=== PATIENT | female | born 1930 | race Caucasian/White ===

== ENCOUNTER 2016-05-18 09:49 | Inpatient (IN) | payer MEDICARE, OTHER ==
[~2016-05-18] VITALS: Ht 177.8 cm; Wt 81.6 kg
[~2016-05-18 09:49] MED LIST: BAYER CHEWABLE81 MG PO; CIPRO250 MG PO; CYCLOBENZAPRINE10 MG PO; METOPROLOL TART50 MG PO; PROZAC20 MG PO; TRIAMTERENE-HCT1 TA1 PO; XANAX0.25 MG PO
[2016-05-18 10:25] LABS: APPEARANCE CLEAR (CLEAR); BILIRUBIN NEGATIVE (NEGATIVE); COLOR STRAW (YELLOW); GLUCOSE NEGATIVE (NEGATIVE); KETONE NEGATIVE (NEGATIVE); LEUKOCYTE ESTERASE NEGATIVE (NEGATIVE); NITRITE NEGATIVE (NEGATIVE); PROTEIN NEGATIVE (NEGATIVE); SPECIFIC GRAVITY 1.005 (1.005-1.020); UROBILINOGEN NORMAL (NORMAL)
[2016-05-18 11:11] LABS: BASOPHILS 0.3 % (0.0-2.0); EOSINOPHILS 0.6 % (0-7); HEMATOCRIT 38.2 % (36.0-48.0); HEMOGLOBIN 12.2 g/dL (12-16); IMMATURE GRANULOCYTES 0.4 % (0-5); LYMPHOCYTES 17.7 % (15-50); MCH 26.4 pg (26.0-34.0); MCHC 31.9 g/dL (31.0-37.0); MCV 82.7 fL (80.0-100.0); MEAN PLATELET VOLUME 9.6 fL (7.4-10.4); MONOCYTES 6.9 % (2-11); NEUTROPHILS 74.1 % (40-80); PLATELET COUNT 288 10x3/uL (130-400); RBC 4.62 10x6/uL (4.00-5.40); RDW 15.6 % (11.5-14.5); WBC 7.8 10x3/uL (4.8-10.8)
[2016-05-18 11:23] LABS: INR 1.06 (0.85-1.17); PROTIME 13.7 SECONDS (11.6-15.0)
[2016-05-18 11:26] LABS: ALKALINE PHOSPHATASE 89 U/L (46-116); ALT (SGPT) 24 U/L (10-68); BILIRUBIN - TOTAL 0.63 mg/dL (0.2-1.3); CALC OSMOLALITY 258 mosm/kg (275-300); CALCIUM 8.7 mg/dL (8.5-10.1); CARBON DIOXIDE 26.5 mmol/L (21.0-32.0); CHLORIDE - SERUM 92 mmol/L (98-107); CREATININE - SERUM 1.3 mg/dL (0.6-1.3); GLUCOSE 103 mg/dL (74-106); POTASSIUM - SERUM 3.5 mmol/L (3.5-5.1); PROTEIN - SERUM 7.2 g/dL (6.4-8.2); SODIUM 128 mmol/L (136-145); UREA NITROGEN 19 mg/dL (7-18); eGFR NON AFRICAN AMERICAN 41 mL/min (90-120)
[2016-05-18 11:36] LABS: CREATINE KINASE 41 UL (21-215); MAGNESIUM - SERUM 1.9 mg/dL (1.8-2.4); PRO BNP 640 pg/mL (0-450)
[2016-05-18 11:37] LABS: TROPONIN-I < 0.017 ng/mL (0.000-0.060)
--- NOTE | 2016-05-18 14:20 | NUR ---
PATIENT RECEIVED TO FLOOR FROM ER VIA STRETCHER. PATIENT TRANSFERRED TO BED AND POSITIONED FOR COMFORT. RATES PAIN 6/10. RIGHT ARM NOTED TO HAVE SCABBED OVER SORE. PATIENT ORIENTED TO ROOM. SIDE RAILS UP X2. BED IN LOW POSITION. CALL LIGHT IN REACH.
[2016-05-18 15:24] VITALS: BP 105/62; BMI 25.8
[2016-05-18 15:57] VITALS: BP 105/62
--- NOTE | 2016-05-18 17:30 | NUR ---
PATIENT SITTING UP ON SIDE OF BED ALERT AND EATING DINNER. TOLERATING WELL. DENIES NEEDS. SIDE RAILS UP X2. BED IN LOW POSITION. CALL LIGHT IN REACH.
--- NOTE | 2016-05-18 18:32 | NUR ---
IVF INITIATED PER ORDERS. IV TO LEFT WRIST PATENT. NO REDNESS OR INFLAMMATION NOTED AT SITE. NORCO ADMINISTERED PER PRN ORDER FOR PAIN 06/29. DENIES NEEDS. SIDE RAILS UP X2. BED IN LOW POSITION. CALL LIGHT IN REACH.
[2016-05-18 19:00] VITALS: BP 113/65
[2016-05-19 01:00] VITALS: BP 121/70
[2016-05-19 04:00] VITALS: BP 112/56
--- NOTE | 2016-05-19 05:46 | NUR ---
PATIENT RESTING WITH EYES CLOSED. NO VISIBLE SIGNS OF DISTRESS. BED IN LOWEST POSITION AND CALL LIGHT WITHIN REACH.
[2016-05-19 06:30] LABS: ANION GAP 14.4 mmol/L (8-16); CALCIUM 8.6 mg/dL (8.5-10.1); CARBON DIOXIDE 25.4 mmol/L (21.0-32.0); CREATININE - SERUM 1.2 mg/dL (0.6-1.3); POTASSIUM - SERUM 3.8 mmol/L (3.5-5.1)
--- NOTE | 2016-05-19 07:30 | NUR ---
PATIENT RECEIVED ALERT IN BED. RESPIRATIONS EVEN AND UNLABORED. DRY PAD PLACED UNDER PATIENT. REQUESTING PAIN MEDICATION. SIDE RAILS UPX 2. BED IN LOW POSITION. CALL LIGHT IN REACH.
--- NOTE | 2016-05-19 07:35 | NUR ---
NORCO ADMINISTERED PER PRN ORDER FOR PAIN 06/29. NO FURTHER NEEDS VOICED. SIDE RAILS UP X2. BED IN LOW POSITION. CALL LIGHT IN REACH.
--- NOTE | 2016-05-19 08:06 | HP ---
PATIENT: KARIN MULLINS MEDICAL RECORD: [id number] ACCOUNT: [id number] LOCATION:[id number] : 29 ADMISSION DATE: 05/18/16 HISTORY AND PHYSICAL EXAMINATION REASON FOR ADMISSION: Pain in the right hip with ambulating. HISTORY OF PRESENT ILLNESS: The patient is an elderly female who had fallen after being tripped by her dog on 05/04/2016. She was seen in the office at that time and complained of some right elbow and hip pain. X-rays were unremarkable for fracture at that time and she was unable to weightbear. ____, this side of her pain did not improve, she could have an occult fracture and need to return to clinic. Apparently over the weekend, she had more pain and she was directed to the ER where a CT scan did show a right-sided superior and inferior nondisplaced pelvic fracture. She is now admitted for pain control and graduated physical therapy. Her elbow has improved initially not bothering her currently. PAST MEDICAL HISTORY: Osteoarthritis, history of cataracts, depression, anxiety, hyperlipidemia, glucose intolerance, and Zenker's diverticulum with dysphagia. PAST SURGICAL HISTORY: She has had a total knee replacement on the right in 2008, hysterectomy. SOCIAL HISTORY: She is . Her son cares for her locally. She is a nonsmoker and nondrinker lifelong. ALLERGIES: PENICILLIN. FAMILY HISTORY: Both parents of cardiovascular disease. HOME MEDICATIONS: Flexeril 10 mg p.o. 6 hours p.r.n. low back pain, metoprolol 25 mg p.o. b.i.d., Xanax 0.25 mg daily p.r.n. anxiety, aspirin 81 mg p.o. daily, Prozac 20 mg p.o. daily, triamterene 1 p.o. q.a.m. REVIEW OF SYSTEMS: CONSTITUTIONAL: No fever, fatigue, or weight change. HEENT: She has some trouble with her vision. No recent trouble hearing. RESPIRATORY: No severe cough. CARDIAC: No chest pain, claudication or edema. GASTROINTESTINAL: No nausea, vomiting, change in stools or blood per rectum. GENITOURINARY: Has mild intermittent incontinence, has had UTIs in the past. No recent dysuria or hematuria. MUSCULOSKELETAL: Was complaining of minimal shoulder pain on the right, but has significant pain in the right hip and groin with standing and could not weightbear at this time. NEUROLOGIC: No history of stroke, TIA, vascular headaches or paresthesias. PSYCHIATRIC: Admits to depressed mood, improved on Prozac. No suicidal thoughts. PHYSICAL EXAMINATION: VITAL SIGNS: Temperature 97.9 Fahrenheit orally, height is 5 feet 2 inches. Weight 180 pounds, pulse is 71, respirations 16, blood pressure 105/52, room air O2 sat 90%. HISTORY AND PHYSICAL [id number] KARIN MULLINS HEENT: Normocephalic. Eyes are clear with cataracts, both eyes. Oropharynx unremarkable. NECK: No bruits or masses. CHEST: Clear. HEART: Regular rate without MGR. PMI appropriate. BREASTS: Appears symmetrical. ABDOMEN: Obese, soft, nontender, no organomegaly. EXTREMITIES: She has some bruising over her right upper lateral humerus, but good range motion of the shoulder and elbow. Right hip shows some pain on abduction or any weightbearing causes pain in the right groin. No significant edema is appreciated. NEUROLOGICAL: Grossly intact motor and sensory. Memory is intact times 3. LABORATORY DATA: CT of the pelvis shows nondisplaced superior and inferior rami fracture on the right with small intramuscular hematoma. Chest x-ray shows no acute cardiopulmonary abnormality. Lab work shows a white count 7800, H&H of 12.2 and 38.2 respectively. Sodium is 128, potassium is 3.5, BUN and creatinine 19 and 1.3, glucose is 103. Lactic acid 1.6. Magnesium 1.9. ProBNP is 640. Urinalysis is clear. INR is 1.06. ASSESSMENT: 1. Subacute right superior and inferior pubic rami fracture with intractable pain. 2. Glucose intolerance. 3. Hypertension. 4. Osteoarthritis. 5. Depression. 6. Chronic anxiety. PLAN: The patient admitted for pain control and graduated physical therapy as tolerated and possible rehabilitation admission. TRANSINT:[id number] Voice Confirmation ID: [id number] DOCUMENT ID: [id number] DE JJ MD at 0806 CC: [id number] DICTATION DATE: 05/18/161809 RN TELE: 05/18/165 [place] [address]
[2016-05-19 08:13] VITALS: BP 115/69
--- NOTE | 2016-05-19 08:25 | NUR ---
PATIENT ALERT IN BED. RESPIRATIONS EVEN AND UNLABORED. STATES PAIN IS BETTER. SCHEDULED MEDICATION ADMINISTERED. SIDE RAILS UP X2. BED IN LOW POSITION. CALL LIGHT IN REACH.
--- NOTE | 2016-05-19 11:30 | NUR ---
PATIENT IN MID MCGOVERN POSITION RESTING WITH EYES CLOSED. RESPIRATIONS EVEN AND UNLABORED. SIDE RAILS UP X2. BED IN LOW POSITION. CALL LIGHT IN REACH.
[2016-05-19 11:32] VITALS: BP 104/58
--- NOTE | 2016-05-19 13:48 | NUR ---
C/O PAIN 08/29. NORCO ADMINISTERED PER PRN ORDER. NO FURTHER NEEDS VOICED. SIDE RAILS UP X2. BED IN LOW POSITION. CALL LIGHT IN REACH.
[2016-05-19 14:23] VITALS: Ht 177.8 cm; Wt 81.6 kg
[2016-05-19 14:58] VITALS: BP 94/55
--- NOTE | 2016-05-19 15:56 | NUR ---
Patient Name: KARIN MULLINS Admission Status: ER Accout number: [id number] Admission Date: 05-18-2016 : 1929 Admission Diagnosis: Attending: MCKENZIE Current LOS: 1 Anticipated DC Date: Planned Disposition: Primary Insurance: MEDICARE A & B Discharge Planning Comments: CM SPOKE WITH PATIENT REGARDING D/C NEEDS AND PLANS. PATIENT STATED SHE LIVES ALONE AND HER SON LIVES ACROSS THE STRE[address] FROM HER. THERE ARE NO STEPS OR STAIRS AT HER HOME. PATIENT STATED HER SON WILL DRIVE HER HOME AT DISCHARGE. PATIENT IS INDEPENDENT WITH HER CARE AND HAS A WALKER, CANE, WHEELCHAIR, BS COMMODE, AND SHOWER CHAIR AT HOME. PATIENTS PCP IS DR. JJ AND PHARMACY IS [facility] [place]. PATIENT HAS A REHAB CONSULT. CM WILL CONTINUE TO FOLLOW PATIENT WITH D/C NEEDS AND PLANS. PCP DR. [facility] [place]- [phone] LOAN BRADLEY) [phone] Fashion Consultant Sales: Mary Knox Is the patient Alert and Oriented? Yes 0 * How many steps to enter\exit or inside your home? 0 0 * PCP DR. JJ 0 * Pharmacy [facility] [place] 0 * Preadmission Environment Home Alone 0 * ADLs Independent 0 * Equipment Bedside Commode Cane Shower Chair Walker Wheelchair 0 * List name and contact numbers for known caregivers / representatives who currently or will assist patient after discharge: LOAN BRADLEY) [phone] * Community resources currently utilized None 0 * Additional services required to return to the preadmission environment? Yes 0 * Can the patient safely return to the preadmission environment? Yes 0 * Has this patient been hospitalized within the prior 30 days at any hospital? No 0 Grand Total: 0
--- NOTE | 2016-05-19 16:30 | NUR ---
PATIENT IN MID MCGOVERN POSITION RESTING WITH EYES CLOSED. RESPIRATIONS EVEN AND UNLABORED. SIDE RAILS UP X2. BED IN LOW POSITION. CALL LIGHT IN REACH.
--- NOTE | 2016-05-19 17:48 | NUR ---
ALERT IN HIGH MCGOVERN POSITION. RESPIRATIONS EVEN AND UNLABORED. TOLERATED DINNER WITHOUT DIFFICULTY. SIDE RAILS UP X2. BED IN LOW POSITION. CALL LIGHT IN REACH.
[2016-05-19 19:00] VITALS: BP 107/61
--- NOTE | 2016-05-19 19:30 | NUR ---
ASSESSMENT COMPLETED, NO ACUTE DISTRESS NOTED, FALL PRECAUTIONS IN PLACE, CL IN REACH, WILL MONITOR
--- NOTE | 2016-05-19 21:10 | NUR ---
NORCO GIVEN PER REQUEST FOR PELVIC PAIN, ASSISTED TO BSC AND BACK TO BED, JIMBO WELL, FALL PRECAUTIONS IN PLACE, CL IN REACH
--- NOTE | 2016-05-19 21:55 | NUR ---
PRN MORPHINE GIVEN FOR PAIN 11/29, JIMBO WELL, WILL MONITOR
--- NOTE | 2016-05-19 23:36 | NUR ---
RESTING WITH EYES CLOSED, RESP WITH EASE, NO DISTRESS NOTED, SR'S UP, CL IN REACH
[2016-05-20 04:00] VITALS: BP 112/67
--- NOTE | 2016-05-20 05:00 | NUR ---
NORCO GIVEN FOR C/O PELVIC PAIN, ASSISTED TO BSC AND BACK TO BED, JIMBO WELL, DENIES FURTHER NEEDS, CL IN REACH
--- NOTE | 2016-05-20 07:10 | NUR ---
PATIENT RECEIVED ALERT IN LOW MCGOVERN POSITION. RESPIRATIONS EVEN AND UNLABORED. RATES PAIN 4/10. SIDE RAILS UP X2. BED IN LOW POSITION. CALL LIGHT IN REACH.
[2016-05-20 08:30] VITALS: BP 141/75
--- NOTE | 2016-05-20 09:23 | NUR ---
PATIENT ALERT IN MID MCGOVERN POSITION. RESPIRATIONS EVEN AND UNLABORED. SCHEDULED MEDICATION ADMINISTERED. IV SALINE LOCKED PER ORDER. DENIES NEEDS. SIDE RAILS UP X2. BED IN LOW POSITION. CALL LIGHT IN REACH.
--- NOTE | 2016-05-20 10:27 | NUR ---
Rehab Prescreening Consult recieved and the chart has been reviewed. She meets criteria for IRF and will be accepted today if the physician and patient agree. The CM Mary Maldonado RN has been made aware. Mili Ramos RN Clinical Liaison, Rehab
--- NOTE | 2016-05-20 12:00 | NUR ---
ALERT IN BED VISITING WITH FAMILY. RESPIRATIONS EVEN AND UNLABORED. SIDE RAILS UP X2. BED IN LOW POSITION. CALL LIGHT IN REACH.
[2016-05-20 12:18] VITALS: BP 93/60
--- NOTE | 2016-05-20 14:53 | NUR ---
C/O PAIN 06/29. 1 TAB NORCO ADMINISTERED PER PRN ORDER. DENIES FURTHER NEEDS. SIDE RAILS UP X2. BED IN LOW POSITION. CALL LIGHT IN REACH.
[2016-05-20 16:43] VITALS: BP 118/56
--- NOTE | 2016-05-20 18:06 | NUR ---
C/O PAIN 08/29. MORPHINE PER PRN ORDER. WELL TOLERATED. DENIES NEEDS. SIDE RAILS UP X2. BED IN LOW POSITION. CALL LIGHT IN REACH.
[2016-05-20 20:00] VITALS: BP 113/65
--- NOTE | 2016-05-20 21:00 | NUR ---
ALERT,ORIENTED. NO COMPLAINTS AT PRESENT. SL TO LEFT FOREARM WIHTOUT REDNESS OR EDEMA NOTED.CL IN REACH.
[2016-05-21] VITALS: BP 145/82
--- NOTE | 2016-05-21 01:53 | NUR ---
UP TO BSC WIHT ASSIST. RETURNED TO BED WIHTOUT COMPLAINTS VOICED. CL IN REACH.
--- NOTE | 2016-05-21 03:17 | NUR ---
RN NOTE: PT LYING IN SUPINE POSITION WITH EYES CLOSED AND UNLABORED BREATHING. LEFT WRIST SALINE LOCKED. WILL CONTINUE TO MONITOR [place]LEY FOR NEEDS. CALL LIGHT WITHIN REACH.
[2016-05-21 04:00] VITALS: BP 121/74
--- NOTE | 2016-05-21 05:53 | NUR ---
AWAKE WITH NO COMPLAINTS. CL IN REACH. NO CHANGE IN ASSESSMENT.
[2016-05-21 08:30] VITALS: BP 126/72
--- NOTE | 2016-05-21 11:19 | NUR ---
CM REASSESSMENT NOTE: PATIENT WILL DISCHARGE TODAY TO IP REHAB.
[2016-05-21 12:28] VITALS: BP 130/70
--- NOTE | 2016-05-21 12:47 | NUR ---
NUTRITION MONITORING & EVAL PT VISIT. TOLERATING REG DIET WITH ~50% INTAKE MEALS. WILL CONTINUE TO PROVIDE CURRENT DIET, HONOR FOOD PREFERENCES. RD FOLLOWING
[2016-05-21] MEDS ORDERED: LOVENOX40 MG/0.4 SC (12:54)
[2016-05-21] MEDS ORDERED: IPRAT-ALBUT 0.5-3 ML INH (12:54)
[2016-05-21] MEDS ORDERED: HYDROCODONE-APA1 TAB PO (12:55)
[2016-05-21] MEDS ORDERED: ANUSOL-HC 2.5%30 GM TOPICAL (12:57)
[2016-05-21 16:10] VITALS: BP 108/54
--- NOTE | 2016-05-21 16:37 | NUR ---
DISCHARGE INSTRUCTIONS COMPLETED WITH PATIENT. D/C IV WITH CATH INTACT.
--- NOTE | 2016-05-21 16:50 | NUR ---
TOOK PATIENT TO REHAB
--- NOTE | 2016-06-20 08:04 | DS ---
PATIENT:KARIN MULLINS :28 MEDICAL RECORD: [id number] DISCHARGE SUMMARY ADMISSION DATE: 05/18/16 DISCHARGE DATE: 05/21/16 DISCHARGE DIAGNOSES: 1. Right superior and inferior pelvic fracture. 2. Hypertension. HOSPITAL COURSE: This is an 85-year-old female who had fallen about a week and a half before admission at home, fell ____ right hip. Initial x-rays were unremarkable. Her pain ____ persistently worse and she was brought into the ED where CT did show superior and inferior ramus fracture on the right medial to the acetabulum. The patient was admitted for pain control and progressive PT. She is improved somewhat and was accepted to inpatient rehab for gradual increase in her walking and working on ADLs and OT. Discharged today in improving condition to [facility] inpatient rehabilitation. DISCHARGE MEDICATIONS: Flexeril 1 p.o. q.6 hours p.r.n. muscle spasm, Lovenox 40 mg subQ daily, Lopressor 25 mg p.o. b.i.d., Xanax 0.25 every day p.r.n. anxiety, aspirin 81 mg p.o. daily, Prozac 20 mg daily, Dyazide 1 q.a.m., hydrocodone 10/325 one q.6 hours p.r.n. pain, Anusol-HC cream applied to hemorrhoids p.r.n. ACTIVITY: Progress as tolerated with physical therapy. DIET: No added salt. Return to clinic to see me 2 weeks after hospital discharge. TRANSINT:[id number] Voice Confirmation ID: [id number] DOCUMENT ID: [id number] DE JJ MD at 0804 CC: [id number] DICTATION DATE: 05/21/16 1258 SUPERVISOR LEAD BURNING: 05/22/16 0920 DIS IN 05/21/16 [address] [place] [address]
== END 2016-05-21 16:50 | DRG 536 ==
LOC: D.ER 09:49 → D.MS 13:35
PROVIDERS: Emergency Medicine; Nurse Practitioner Family; ADMIT Family Medicine
DX: S32.810A Multiple fractures of pelvis with stable disruption of pelvic ring, initial encounter for closed fracture (principal); E87.1 Hypo-osmolality and hyponatremia; W01.0XXA Fall on same level from slipping, tripping and stumbling without subsequent striking against object, initial encounter; E78.5 Hyperlipidemia, unspecified; M19.90 Unspecified osteoarthritis, unspecified site; F41.9 Anxiety disorder, unspecified; F32.9 Major depressive disorder, single episode, unspecified; E74.39 Other disorders of intestinal carbohydrate absorption; I10 Essential (primary) hypertension; R26.9 Unspecified abnormalities of gait and mobility

== ENCOUNTER 2016-05-21 13:14 | Inpatient (IN) | payer MEDICARE, OTHER ==
[~2016-05-21] VITALS: Ht 177.8 cm; Wt 83.5 kg
[~2016-05-21 13:14] MED LIST changes: +ANUSOL-HC 2.5%30 GM TOPICAL; +HYDROCODONE-APA1 TAB PO; +IPRAT-ALBUT 0.5-3 ML INH; +LOVENOX40 MG/0.4 SC
--- NOTE | 2016-05-21 16:45 | NUR ---
PT RECEIVED TO UNIT VIA WHEELCHAIR ALERT AND CALM.
[2016-05-21 17:25] VITALS: BP 145/67; BMI 26.4
[2016-05-21 18:37] LABS: BASOPHILS 0.5 % (0.0-2.0); HEMATOCRIT 39.1 % (36.0-48.0); IMMATURE GRANULOCYTES 0.3 % (0-5); LYMPHOCYTES 31.5 % (15-50); MCH 26.2 pg (26.0-34.0); MCHC 30.7 g/dL (31.0-37.0); MCV 85.4 fL (80.0-100.0); MEAN PLATELET VOLUME 9.8 fL (7.4-10.4); MONOCYTES 10.3 % (2-11); NEUTROPHILS 53.4 % (40-80); PLATELET COUNT 303 10x3/uL (130-400); RBC 4.58 10x6/uL (4.00-5.40); RDW 15.9 % (11.5-14.5); WBC 6.3 10x3/uL (4.8-10.8)
[2016-05-21 18:50] LABS: ANION GAP 15.3 mmol/L (8-16); CALCIUM 8.7 mg/dL (8.5-10.1); CARBON DIOXIDE 26.9 mmol/L (21.0-32.0); CREATININE - SERUM 1.1 mg/dL (0.6-1.3); POTASSIUM - SERUM 4.2 mmol/L (3.5-5.1)
[2016-05-21 19:15] VITALS: BP 135/72
--- NOTE | 2016-05-21 19:20 | NUR ---
PT ASSISTED TO BR. PT BRIEF CHANGED. PT BACK IN BED RESTING AND DENIES FURTHER NEEDS. WCTM. BED LOW. Rudolph ALVARADO.
--- NOTE | 2016-05-21 21:20 | NUR ---
PT HS MEDS GIVEN. PRN XANAX, PAIN MEDICATION AND MUSCLE RELAXER ALL REQ AND REC'D AT THIS TIME. WCTM. BED LOW. CL IN REACH.
--- NOTE | 2016-05-22 00:30 | NUR ---
PT RESTING, EYES CLOSED. BED LOW. CL IN REACH. WCTM.
--- NOTE | 2016-05-22 03:15 | NUR ---
PT RESTING, EYES CLOSED. BED LOW. CL IN [facility].
--- NOTE | 2016-05-22 06:30 | NUR ---
PT AM MEDS ADMINISTERED. PT HAD INCONTINENT EPISODE. PT ASSISTED TO BR. PT HAD SM BM. PT BRIEF CHANGED. PT BACK IN BED AND DENIES FURTHER NEEDS. BED LOW. CL IN REACH.
--- NOTE | 2016-05-22 07:25 | NUR ---
RESTING QUIETLY IN BED CALL LIGHT IN REACH
--- NOTE | 2016-05-22 08:15 | NUR ---
PT RESTING IN BED WITH EYES OPEN CALL LIGHT IN REACH PT EATING BREAKFAST TOLERATING WELL
[2016-05-22 08:54] VITALS: BP 135/69
[2016-05-22 12:53] VITALS: Ht 177.8 cm; Wt 83.5 kg
--- NOTE | 2016-05-22 14:57 | NUR ---
PT IN THERAPY GYM WITH PT NO PROBLEMS WILL MONITER
[2016-05-22 19:00] VITALS: BP 114/68
--- NOTE | 2016-05-22 19:34 | NUR ---
PT IN BED WITH HOB UP FOR COMFORT, WATCHING TV, PT STATES SHE HAS A PAIN LEVEL OF 10/10 AND REQUESTS A PAIN PILL, BED IN LOWEST POSITION AND CALL LIGHT WITHIN REACH.
[2016-05-22 20:45] VITALS: BP 99/79
[2016-05-22 21:44] VITALS: BP 124/63
--- NOTE | 2016-05-22 22:55 | NUR ---
PT. IN BED WITH HOB UP FOR COMFORT AND HAS BLE'S DRAWN UP. PT. REQUESTING A PAIN PILL BUT I INFORMED PT. IT WASN'T TIME, SO SHE REQUESTED HER MUSCLE RELAXER. MUSCLE RELAXER ADMIN. PER REQUEST. PT. HAS NO OTHER NEEDS EXCEPT TO CLOSE THE DOOR ON MY WAY OUT THE [place] LIGHT BOTHERS HER. CALL LIGHT WITHIN REACH.
--- NOTE | 2016-05-22 23:00 | NUR ---
PT'S SHOWER COMPLETED BY HARPREET PINON. PT. DENIES ANY NEEDS AT THIS TIME AND IS IN BED WITH HOB UP FOR COMFORT AND CALL LIGHT WITHIN REACH.
--- NOTE | 2016-05-22 23:24 | NUR ---
PT IN BED WITH HOB UP FOR COMFORT, EYES CLOSED, CHEST RISING AND FALLING, BED IN LOWEST POSITION AND CALL LIGTH WITHIN REACH.
--- NOTE | 2016-05-23 04:33 | NUR ---
PT IN BED WITH HOB UP FOR COMFORT, EYES CLOSED, CHEST RISING AND FALLING, BED IN LOWEST POSITION AND CALL LIGTH WITHIN REACH.
[2016-05-23 07:00] VITALS: BP 119/72
--- NOTE | 2016-05-23 07:30 | NUR ---
SLEEPING IN BED.
--- NOTE | 2016-05-23 08:24 | NUR ---
PT RESTING IN BED WITH EYES OPEN EATING BREAKFAST CALL LIGHT IN REACH WILL MONITER
--- NOTE | 2016-05-23 12:05 | NUR ---
PT RESTING IN BED WITH EYES OPEN CALL LIGHT IN REACH NO PROBLEMS WILL MONITER
--- NOTE | 2016-05-23 17:29 | NUR ---
PT RESTING IN BED EATING SUPPER CALL LIGHT IN REACH WILL MONITER
[2016-05-23 19:20] VITALS: BP 134/70
--- NOTE | 2016-05-23 19:31 | NUR ---
PT IN BED WITH HOB UP FOR COMFORT, PT STATES SHE HAS A PAIN LEVEL 5/10, BED IN LOWEST POSITION AND CALL LIGHT WITHIN REACH.
--- NOTE | 2016-05-23 23:31 | NUR ---
PT IN BED WITH HOB UP FOR COMFORT, EYES CLOSED, CHEST RISING AND FALLING, BED IN LOWEST POSITION AND CALL LIGHT WITHIN REACH.
--- NOTE | 2016-05-24 04:17 | NUR ---
PT RESTING QUIETLY, RESPIRATIONS REGULAR AND UNLABORED, NO S/S OF ACUTE DISTRESS.
--- NOTE | 2016-05-24 04:31 | NUR ---
PT IN BED WITH HOB UP FOR COMFORT, EYES CLOSED, CHEST RISING AND FALLING, BED IN LOWEST POSITION AND CALL LIGHT WITHIN REACH.
[2016-05-24 07:00] VITALS: BP 101/58
--- NOTE | 2016-05-24 08:33 | NUR ---
PT RESTING IN BED WITH EYES OPEN CALL LIGHT IN REACH WILL MONITER
--- NOTE | 2016-05-24 12:21 | RHP ---
PATIENT: KARIN MULLINS MEDICAL RECORD: [id number] ACCOUNT: [id number] LOCATION:[facility] [id number] : 29 ADMISSION DATE: 05/21/16 REHABILITATION HISTORY AND PHYSICAL EXAMINATION POST ADMISSION PHYSICIAN EXAMINATION Post-Admission Physical Examination and History and Physical DATE OF ADMISSION TO THE REHAB: 05/21/2016 ADMITTING DIAGNOSES: Subacute right superior and inferior pubic rami fractures, intramuscular hematomas and intractable pain. HISTORY OF PRESENT ILLNESS: The patient admitted with a right superior and inferior pubic ramus fracture. She is an 85-year-old female patient, who had fallen after being tripped by her dog on May 04. She was sent to the physician's office. At that time, she complained of some right elbow and hip pain. X-rays were unremarkable for fracture at that time even though she was unable to bear weight on that side due to increased pain. Apparently over the weekend, she had more pain, was directed to the ER where a CT scan was done, which showed a right-sided superior and inferior displaced pubic ramus fracture and some intramuscular hematoma. She was admitted for pain control and graduated physical therapy. Her elbows improved initially, it is not bothering her at this time. She has bruising over her right upper lateral humerus, but has good range of motion in her shoulder and elbow. Right hip shows some pain on abduction and any weightbearing causes pain in the right groin. She lived alone with her son across the street. She was able to perform ADLs and ambulate with a rolling walker. Currently, she is moderate to max assist for ADLs and mobility. She wants to return back home and get back to her prior level of function. COMORBIDITIES: In this patient include tachycardia, hyponatremia, gait abnormality, frequent falls, glucose intolerance, osteoarthritis, Zenker's diverticulum, hyperlipidemia, TIA, urinary incontinence, cataracts, depression, anxiety, frequent UTIs, and dysphagia. PAST MEDICAL HISTORY: Significant for depression, anxiety, frequent UTIs, dysphagia firmed Zenker's diverticulum, urinary incontinence, electrolyte abnormalities, and cataracts. PAST SURGICAL HISTORY: Includes hysterectomy, tonsillectomy and adenoidectomy. ALLERGIES: ____ AND PENICILLIN. CURRENT MEDICATIONS: Include Dyazide daily. She is on hydrocortisone cream daily, Prozac 20 mg daily, enoxaparin 40 mg subQ daily, aspirin chewable 81 mg daily, DuoNeb updrafts, metoprolol 25 mg b.i.d., [place] 1 tab q.6 hours p.r.n. pain, cyclobenzaprine 10 mg q.6 hours p.r.n., and Xanax 0.25 mg daily as needed. HABITS: No alcohol or tobacco use. FAMILY HISTORY: Noncontributory. SOCIAL HISTORY: The patient hopes to return back home and get back to her prior level of function. Once again, her sone lives right across the street. HISTORY AND PHYSICAL [id number] KARIN MULLINS REVIEW OF SYSTEMS: GENERAL: She denies weakness or fatigue. HEENT: She denies cold, cough, or congestion. CARDIOVASCULAR: She denies chest pain, but does complain of pain with ambulation, especially in her pelvic region. PHYSICAL EXAMINATION: VITAL SIGNS: Stable, afebrile. GENERAL: Elderly female, in no acute distress, alert upon exam. HEENT: Normocephalic and atraumatic. Mucosa moist. NECK: Supple. No lymphadenopathy. LUNGS: Clear at this time. HEART: Regular rate and rhythm. ABDOMEN: Benign. EXTREMITIES: She does have some bruising above her humerus. Her pelvis is also tender to palpation. NEUROLOGIC: Intact. LABORATORY DATA: Her white count 6.3, H&H of 12 and 39, and platelet count was noted to be 303. Her sodium is 138, potassium 4.2, BUN and creatinine of 20 and 1.1, and blood sugars are noted to be 94. ASSESSMENT: This is an 85-year-old female patient admitted to rehab with a working diagnosis of pelvic fracture and intramuscular hematoma. The patient has potential to make improvement. We instituted the following multidisciplinary therapies including to, but not limited to physical, occupational, respiratory, speech, nutritional services, prosthetics and orthotics. Given her complex condition and risk for more complications, rehabilitation services cannot be provided at a low level of care such as a long term facility. PLAN: 1. Admit to [facility] rehab for intensive inpatient therapy to include the following disciplines: A. Physical therapy to improve gait, all transfer skills and bed mobility to a modified independent level. B. Occupational therapy to improve activities of daily living to a modified independent level. C. Case management to assist with discharge planning and placement options. D. Nutrition to assist with nutritional needs. E. Rehabilitation nursing to assist in monitoring the patient's underlying medical conditions and to assist with any type of bowel or bladder management. 2. The patient's current medications and medical care will be continued. 3. The patient will be placed on standard fall precautions. 4. We will go ahead and check a vitamin D level and calcium during her stay. 5. We will discuss this patient during care team staff meeting. We will also watch for any signs of blood loss from her pelvic fracture. TRANSINT:[id number] Voice Confirmation ID: [id number] DOCUMENT ID: [id number] HISTORY AND PHYSICAL [id number] KARIN MULLINS SCOTT MD at 1221 CC: [id number] DICTATION DATE: 05/22/1640 CABLE TELEVISION LINE TECHNICIAN: 05/22/16 1243 ADM IN [place] [id number] [place] [address]
--- NOTE | 2016-05-24 13:35 | NUR ---
PT RESTING IN BED WITH EYES OPEN CALL LIGHT IN REACH NO PROBLEMS WILL MONITER
--- NOTE | 2016-05-24 17:43 | NUR ---
PT RESTING IN BED WITH EYES OPEN CALL LIGHT IN REACH WILL MONITER
[2016-05-24 19:00] VITALS: BP 96/66
--- NOTE | 2016-05-24 19:33 | NUR ---
PT IN BED WITH HOB UP FOR COMFORT, PT STATES SHE HAS A PAIN LEVEL OF 4/10, BED IN LOWEST POSITION AND CALL LIGHT WIHTIN REACH.
--- NOTE | 2016-05-24 23:20 | NUR ---
PT IN BED WITH HOB UP FOR COMFORT, EYES CLOSED, CHEST RISING AND FALLING, BED IN LOWEST POSITION AND CALL LIGHT WITHIN REACH.
--- NOTE | 2016-05-25 04:21 | NUR ---
PT IN BED WITH HOB UP FOR COMFORT, EYES CLOSED, CHEST RISING AND FALLING, BED IN LOWEST POSITION AND CALL LIGHT WITHIN REACH.
--- NOTE | 2016-05-25 04:32 | NUR ---
PT RESTING, EYES CLOSED. BED LOW. CLIN REACH.
[2016-05-25 05:43] LABS: BASOPHILS 0.5 % (0.0-2.0); EOSINOPHILS 3.3 % (0-7); HEMATOCRIT 33.6 % (36.0-48.0); HEMOGLOBIN 10.3 g/dL (12-16); IMMATURE GRANULOCYTES 0.2 % (0-5); LYMPHOCYTES 26.1 % (15-50); MCH 25.5 pg (26.0-34.0); MCHC 30.7 g/dL (31.0-37.0); MCV 83.2 fL (80.0-100.0); MONOCYTES 9.6 % (2-11); NEUTROPHILS 60.3 % (40-80); PLATELET COUNT 260 10x3/uL (130-400); RBC 4.04 10x6/uL (4.00-5.40); WBC 5.8 10x3/uL (4.8-10.8)
[2016-05-25 06:06] LABS: CALCIUM 8.1 mg/dL (8.5-10.1); CARBON DIOXIDE 26.6 mmol/L (21.0-32.0); CREATININE - SERUM 0.9 mg/dL (0.6-1.3); POTASSIUM - SERUM 3.6 mmol/L (3.5-5.1)
--- NOTE | 2016-05-25 07:00 | NUR ---
Pt. was received at the beginning of this shift in bed and awake. She is oriented x 3. No verbal complaints of any kind. Vital signs: Temp. 97.7, pulse 87, resp. 15, b/p 120/71, 02sat. 98%. Will be monitoring her and assisting prn with adl's. No signs of any discomfort or distress. Call light is in reach.
[2016-05-25 09:18] VITALS: BP 120/71
--- NOTE | 2016-05-25 14:11 | NUR ---
Pt. requested something to help her bowels move tonight. She was given miralax in her ice tea at lunch per request. She was given a [place] 10mg per request for pain medication around 1350 for pelvis region discomfort. Pt. is resting comfortably in bed at this time. Call light is in reach.
--- NOTE | 2016-05-25 18:39 | NUR ---
Pt. is skepital about her bowels moving even though she drank Miralax today. I encouraged the pt. to drink another dose of it tonight and she said she would try it. She said if she doesn't have a bm she would like milk of magnesia ordered.
--- NOTE | 2016-05-25 18:42 | NUR ---
Pt. did ask for pain medication this afternoon and received [place] 10mg at 1350 for discomfort in pelvis region. She has not asked for anymore pain medication. She seems to have having a bm on her mind.
[2016-05-25 19:00] VITALS: BP 103/61
--- NOTE | 2016-05-25 19:20 | NUR ---
PATIENT IN BED, DENIES NEEDS.
--- NOTE | 2016-05-25 20:45 | NUR ---
ASSESSMENT AND HS MEDS COMPLETE. PATIENT RECENTLY RETURNED FROM BR AFTER ASSIST THERE BY STEEL FABRICATING SUPERVISOR. C/O PELVIC AND LUMBOSACRAL PAIN OF LEVEL 5/10. GAVE HER NORCO 10/325 X1 TAB PO FOR PAIN AND HELD HER SCHEDULED LOPRESSOR FOR LOW BP OF 103/61.
--- NOTE | 2016-05-25 22:30 | NUR ---
RESTING IN BED, EYES CLOSED.
--- NOTE | 2016-05-26 00:20 | NUR ---
REMAINS IN BED, EYES CLOSED. APPEARS COMFORTABLE.
--- NOTE | 2016-05-26 02:20 | NUR ---
ASSISTED PATIENT UP TO BR COMMODE, AND THEN BACK TO BED AFTER URINATING.
--- NOTE | 2016-05-26 03:25 | NUR ---
PATIENT C/O PAIN LEVEL OF 9/10 IN PELVIS AND LOW BACK. GAVE HER NORCO 10325 X1 TAB PO.
--- NOTE | 2016-05-26 04:25 | NUR ---
RESTING QUIETLY IN BED, EYES CLOSED. APPEARS COMFORTABLE.
--- NOTE | 2016-05-26 05:40 | NUR ---
RESTING QUIETLY IN BED, EYES CLOSED.
--- NOTE | 2016-05-26 07:00 | NUR ---
Pt. was received in her bed awake and oriented x 3 at the beginning of this shift. Stable condition observed. Vital signs: Temp. 97.4, pulse 88, resp. 14, b/p 145/77, 02Sat. 96%. No verbal complaints at this time. Will be monitoring her and assisting prn with adl's.
[2016-05-26 10:24] VITALS: BP 145/77
--- NOTE | 2016-05-26 13:44 | NUR ---
Nutrition Follow Up: Chart reviewed. Pt is eating 92% meal avg on a OMARI diet. Wt stable. +BM 05/24/16. Labs noted - Na low. Meds noted. Pt with excellent po intake at this time. Rec continue current diet. Will continue to provide selective menus and honor food preferences. RD following.
--- NOTE | 2016-05-26 18:31 | NUR ---
Pt. had a sponge bath given by herself this morning. Pt. asked for a [place] 10mgaround 10:10 for discomfort and again at 1730. Pt is visiting with her at this time. She would like MOM tamikayogesh.
[2016-05-26 19:00] VITALS: BP 90/58
--- NOTE | 2016-05-26 19:30 | NUR ---
IN BED. DENIES CURRENT NEEDS.
--- NOTE | 2016-05-26 21:45 | NUR ---
ASSESSMENT AND HS MEDS COMPLETE. HELD LOPRESSOR FOR BP 90/58.
--- NOTE | 2016-05-26 23:36 | NUR ---
GAVE PATIENT NORCO 10 X1 TAB PO FOR PAIN LEVEL OF 6/10 IN PELVIS AND LOW BACK, AND THEN ASSISTED HER UP TO BR VIA W/C.
--- NOTE | 2016-05-27 00:25 | NUR ---
IN BED, EYES CLOSED. NO DISTRESS NOTED.
--- NOTE | 2016-05-27 02:05 | NUR ---
RESTING IN BED, EYES CLOSED. APPEARS COMFORTABLE.
--- NOTE | 2016-05-27 04:45 | NUR ---
RESTING QUIETLY IN BED, EYES CLOSED.
--- NOTE | 2016-05-27 05:35 | NUR ---
PATIENT BACK IN BED AFTER RECENT ASSIST TO COMMODE. PATIENT URINATED AND HAD A MEDIUM, FORMED BM, AND THEN CHANGED CLOTHES FOR THERAPY.
[2016-05-27 07:16] LABS: BASOPHILS 0.7 % (0.0-2.0); EOSINOPHILS 5.3 % (0-7); HEMATOCRIT 34.3 % (36.0-48.0); HEMOGLOBIN 10.4 g/dL (12-16); MCH 25.6 pg (26.0-34.0); MCHC 30.3 g/dL (31.0-37.0); MCV 84.5 fL (80.0-100.0); MEAN PLATELET VOLUME 9.5 fL (7.4-10.4); MONOCYTES 10.5 % (2-11); NEUTROPHILS 48.5 % (40-80); RBC 4.06 10x6/uL (4.00-5.40); WBC 4.4 10x3/uL (4.8-10.8)
[2016-05-27 07:22] LABS: PLATELET COUNT 319 10x3/uL (130-400)
[2016-05-27 07:32] LABS: ANION GAP 11.3 mmol/L (8-16); CALCIUM 8.7 mg/dL (8.5-10.1); CARBON DIOXIDE 27.5 mmol/L (21.0-32.0); CREATININE - SERUM 0.9 mg/dL (0.6-1.3); POTASSIUM - SERUM 3.8 mmol/L (3.5-5.1)
--- NOTE | 2016-05-27 07:45 | NUR ---
ASSISTED TO BR VIA WHEELCHAIR WITHOUT FALLS NOTED.
[2016-05-27 09:41] VITALS: BP 152/88
--- NOTE | 2016-05-27 11:45 | NUR ---
ROLLING IN WHEELCHAIR IN HALLWAY WITH THERAPY.
--- NOTE | 2016-05-27 13:40 | NUR ---
SITTING IN WHEELCHAIR IN GYM.
--- NOTE | 2016-05-27 14:48 | NUR ---
CARE TEAM MEETING: PATIENT TEANTIVE DISCHARGE DATE IS 06/08/16. PCP IS DR. JJ USES [facility] [place], HAS WALKER, CANE, WHEELCHAIR, BEDSIDE COMMODE, SHOWER CHAIR. WILL CONTINUE TO FOLLOW WITH PATIENT UNTIL DISCHARGED
--- NOTE | 2016-05-27 17:15 | NUR ---
SITTING UP IN WHEELCHAIR EATING DINNER.
[2016-05-27 19:00] VITALS: BP 96/53
--- NOTE | 2016-05-27 19:40 | NUR ---
IN BED, AWAKE. DENIES NEEDS.
--- NOTE | 2016-05-27 21:35 | NUR ---
ASSESSMENT AND HS MEDS COMPLETE. GAVE PATIENT NORCO 10325 X1 TAB PO FOR PELVIC AND LOW BACK PAIN OF LEVEL 6/10.
--- NOTE | 2016-05-27 22:10 | NUR ---
RESTING QUIETLY IN BED, EYES CLOSED.
--- NOTE | 2016-05-28 01:50 | NUR ---
ASSISTED PATIENT UP TO BR TO URINATE AND CHANGE PULL-UP BRIEF. ON RETURN TO BED, C/O PAIN LEVEL OF 6/10 IN PELVIS AND LOW BACK. GAVE HER NORCO 10/325 X1 TAB PO.
--- NOTE | 2016-05-28 04:35 | NUR ---
IN BED, EYES CLOSED. RESPIRATIONS UNLABORED.
--- NOTE | 2016-05-28 06:50 | NUR ---
ASSISTED PATIENT BACK FROM BR AND ASSISTED HER TO DRESS. DENIES FURTHER NEEDS.
[2016-05-28 09:00] VITALS: BP 111/72
--- NOTE | 2016-05-28 09:45 | NUR ---
SITTING IN WHEELCHAIR IN GYM.
--- NOTE | 2016-05-28 11:23 | NUR ---
RESTING IN BE.
--- NOTE | 2016-05-28 13:30 | NUR ---
SITTING IN WHEELCHAIR IN THE ROOM.
--- NOTE | 2016-05-28 14:55 | NUR ---
SLEEPING IN BED WITH CALLIGHT IN REACH.
--- NOTE | 2016-05-28 17:40 | NUR ---
SITTING IN WHEELCHAIR EATING DINNER.
[2016-05-28 19:00] VITALS: BP 121/66
--- NOTE | 2016-05-28 20:20 | NUR ---
PT TOOK HS MEDS WITHOUT DIFFICULTY. PT DENIES FURTHER NEEDS AT THIS TIME. BED LOW. CL IN [facility].
--- NOTE | 2016-05-28 22:15 | NUR ---
PT RESTING, EYES CLOSED. BED LOW. CL IN REACH. WCTM.
--- NOTE | 2016-05-29 00:28 | NUR ---
PT ASSISTED TO BR, MOD ASSIST. PT BACK IN BED RESTING AND DENIES FURTHER NEEDS. WCTM. BED LOW. Rudolph ALVARADO.
--- NOTE | 2016-05-29 02:03 | NUR ---
PT RESTING, EYES CLOSED. BED LOW. CL IN REACH.
--- NOTE | 2016-05-29 03:54 | NUR ---
PT RESTING, EYES CLOSED. RR ARE EVEN AND UNLABORED. WCTM. BED LOW. CL IN [facility].
--- NOTE | 2016-05-29 06:51 | NUR ---
PT ASSISTED TO BR. PT BACK IN BED RESTING, AND DENIES FURTHER NEEDS. BED LOW CL IN REACH.
--- NOTE | 2016-05-29 07:00 | NUR ---
Pt. was received at the beginning of this shift in bed awake and oriented x 3. Vital signs: Temp. 98.2, pulse 84, resp. 15, b/p 128/52, 02Sat. 98%. No voiced complaints at this time. Will continue to monitor and assist prn with adl's. Call light is in reach.
[2016-05-29 08:15] LABS: BASOPHILS 0.6 % (0.0-2.0); EOSINOPHILS 2.9 % (0-7); HEMATOCRIT 34.3 % (36.0-48.0); HEMOGLOBIN 10.6 g/dL (12-16); IMMATURE GRANULOCYTES 0.2 % (0-5); MCH 25.8 pg (26.0-34.0); MCHC 30.9 g/dL (31.0-37.0); MCV 83.5 fL (80.0-100.0); MEAN PLATELET VOLUME 9.4 fL (7.4-10.4); MONOCYTES 10.6 % (2-11); NEUTROPHILS 57.7 % (40-80); PLATELET COUNT 355 10x3/uL (130-400); RBC 4.11 10x6/uL (4.00-5.40); RDW 16.3 % (11.5-14.5); WBC 5.2 10x3/uL (4.8-10.8)
[2016-05-29 08:46] LABS: ANION GAP 10.8 mmol/L (8-16); CALCIUM 8.5 mg/dL (8.5-10.1); CARBON DIOXIDE 28.3 mmol/L (21.0-32.0); CREATININE - SERUM 1.1 mg/dL (0.6-1.3); POTASSIUM - SERUM 4.1 mmol/L (3.5-5.1)
[2016-05-29 09:00] VITALS: BP 128/52
--- NOTE | 2016-05-29 12:00 | NUR ---
Pt. asked for pain medication this morning around 9:25 and received a Columbia 10mg for pelvis pain. She went to therapy and worked real hard. Will continue to observe and assist. No signs of discomfort or distress.
[2016-05-29 19:00] VITALS: BP 152/80
--- NOTE | 2016-05-29 20:25 | NUR ---
PT TOOK HS MEDS WITHOUT DIFFICULTY. PT DENIES NEEDS. WCTM. BED LOW. CL IN REACH.
--- NOTE | 2016-05-29 21:56 | NUR ---
PT REQ AND REC'D PRN PAIN MEDICATION AT THIS TIME. WCTM. BED LOW. CL IN REACH.
--- NOTE | 2016-05-29 23:30 | NUR ---
PT RESTING, EYES CLOSED. BED LOW. CL IN REACH.
--- NOTE | 2016-05-30 01:15 | NUR ---
PT RESTING, EYES CLOSED. BED LOW. CL IN REACH.
--- NOTE | 2016-05-30 03:43 | NUR ---
PT ASSISTED TO BR. PT REQ AND REC'D PRN PAIN MEDICATION. PT BACK IN BED RESTING. BED LOW. CL IN REACH.
--- NOTE | 2016-05-30 06:06 | NUR ---
PT TOOK AM MEDS WITHOUT DIFFICULTY. PT GETTING DRESSED FOR THERAPY. PT DENIES NEEDS AT THIS TIME. BED LOW. CL IN REACH.
[2016-05-30 07:00] VITALS: BP 114/62
--- NOTE | 2016-05-30 07:00 | NUR ---
Pt. was received in bed awake and oriented x 3 at the beginning of this shift. She is pleasant and has no complaints to staff or concerns. Vital signs: Temp. 98.0, pulse 71, resp 18, b/p 114/62, 02sat 97%. Will be monitoring her and assisting prn with adl's. Call light is in reach.
--- NOTE | 2016-05-30 17:24 | NUR ---
Pt. asked for a [place] pill around 10am for discomfort in her pelvis region and received one at that time. She has had an uneventful day today. Up in wheelchair going about.
[2016-05-30 19:36] VITALS: BP 102/58
--- NOTE | 2016-05-30 20:14 | NUR ---
PT STATES SHE DOESN'T WANT ANY MOM, HAS HAD TWO STOOLS, STATES IS READY FOR PAIN MED WHEN SHE CAN HAVE ONE. WILL MEDICATE ACCORDING TO ORDER.
[2016-05-31 07:00] VITALS: BP 109/60
--- NOTE | 2016-05-31 07:00 | NUR ---
Pt. was received at the beginning of this shift in bed asleep and resting comfortably. Breathing was easy and unlabored. Call light was in reach. No signs of any discomfort or distress. Vital signs taken were: Temp. 97.7, pulse 59, resp 18, b/p 109/60, o2Sat. 97%. Will be monitoring her and assisting prn with adl's.
--- NOTE | 2016-05-31 13:55 | NUR ---
Pt. requested pain medication around 11am for her right arm hurting from falling on it when she fx her pelvis. She said it still hurts from time to time. She was given a [place] 10mg for this discomfort. She is very friendly and cooperative with staff. Will monitor her comfort level.
--- NOTE | 2016-05-31 18:55 | NUR ---
DELIVERED PATIENT'S MENU. TOLD HER I WILL PICK IT UP LATER.
[2016-05-31 21:40] VITALS: BP 126/61
--- NOTE | 2016-05-31 21:40 | NUR ---
ASSESSMENT AND HS MEDS COMPLETE. GAVE PATIENT NORCO 10 X1 TAB PO FOR PAIN LEVEL OF 8/10 IN PELVIS AND LOW BACK. ASSISTED HER UP TO COMMODE WHERE SHE CHANGED HER PULL-UP AND DONNED PJ'S FOR THE NIGHT.
--- NOTE | 2016-05-31 22:35 | NUR ---
RESTING IN BED, EYES CLOSED.
--- NOTE | 2016-06-01 00:10 | NUR ---
RESTING IN BED, EYES CLOSED DESPITE ROOMMATES CONSTANT CHATTER.
--- NOTE | 2016-06-01 02:45 | NUR ---
RESTING IN BED, EYES CLOSED.
--- NOTE | 2016-06-01 04:05 | NUR ---
GAVE PATIENT NORCO 10/325 X1 TAB PO FOR PAIN LEVEL OF 10/10 IN RIGHT HIP.
--- NOTE | 2016-06-01 05:40 | NUR ---
RESTING IN BED ON RIGHT SIDE, EYES CLOSED.
[2016-06-01 06:09] LABS: BASOPHILS 0.6 % (0.0-2.0); EOSINOPHILS 4.2 % (0-7); HEMATOCRIT 34.1 % (36.0-48.0); HEMOGLOBIN 10.5 g/dL (12-16); IMMATURE GRANULOCYTES 0.4 % (0-5); LYMPHOCYTES 38.5 % (15-50); MCH 25.5 pg (26.0-34.0); MCHC 30.8 g/dL (31.0-37.0); MEAN PLATELET VOLUME 9.7 fL (7.4-10.4); MONOCYTES 12.4 % (2-11); NEUTROPHILS 43.9 % (40-80); PLATELET COUNT 382 10x3/uL (130-400); RBC 4.11 10x6/uL (4.00-5.40); RDW 16.1 % (11.5-14.5)
[2016-06-01 06:31] LABS: ANION GAP 11.1 mmol/L (8-16); CALCIUM 8.3 mg/dL (8.5-10.1); CARBON DIOXIDE 26.5 mmol/L (21.0-32.0); CREATININE - SERUM 1.1 mg/dL (0.6-1.3); POTASSIUM - SERUM 3.6 mmol/L (3.5-5.1)
--- NOTE | 2016-06-01 07:56 | NUR ---
PT SEATING ON THE SIDE OF BED EATING BREAKFAST TOLERATING WELL WILL MONITER
[2016-06-01 09:24] VITALS: BP 122/66
--- NOTE | 2016-06-01 12:41 | NUR ---
PT RESTING IN BED WITH EYES OPEN CALL LIGHT IN REACH PT EATING LUNCH TOLERATING WELL WILL MONITER
--- NOTE | 2016-06-01 16:41 | NUR ---
PT IN BED, EYES OPEN, RESTING QUIETLY, BED IN LOWEST POSITION AND CALL LIGHT WITHIN REACH.
--- NOTE | 2016-06-01 19:04 | NUR ---
PT RESTING IN BED WATCHING TV, DENIES NEEDS. WCTM. BED LOW. CL IN REACH.
[2016-06-01 19:37] VITALS: BP 108/60
--- NOTE | 2016-06-01 21:56 | NUR ---
PT HS MEDS ADMINISTERED. PT REQ AND REC'D PRN PAIN MEDICATION FOR PELVIC PAIN. PT DENIES FURTHER NEEDS. WCTM. BED LOW. CL IN REACH.
--- NOTE | 2016-06-02 00:36 | NUR ---
PT RESTING, EYES CLOSED. BED LOW. CL IN REACH.
--- NOTE | 2016-06-02 03:37 | NUR ---
PT REQ AND REC'D PRN PAIN MEDICATION FOR PELVIC PAIN. PT ALSO ASSISTED TO THE BR AT THIS TIME. PT DENIES FURTHER NEEDS. WCTM. BED LOW. CL IN REACH.
--- NOTE | 2016-06-02 06:48 | NUR ---
PT UP AND DRESSED FOR THERAPY. PT DENIES NEEDS. WCTM. BED LOW. CL INR EACH.
--- NOTE | 2016-06-02 07:00 | NUR ---
Pt. was received at the beginning of this shift in bed awake and oriented x 3. No verbal complaints at this time. Vital signs: Temp. 97.6, pulse 71, resp. 14, b/p 104/56, 02sat. 97%. Will be monitoring pt. and assisting prn with adl's.
[2016-06-02 09:05] VITALS: BP 104/56
--- NOTE | 2016-06-02 11:53 | NUR ---
Nutrition Follow Up: Pt in therapy at the time of RD visit. Interview deferred at this time. Chart reviewed. Pt is eating 86% meal avg on a regular OMARI diet. +BM 05/31/16. Labs noted - Na low. Meds noted. Pt with good po intake at this time. Rec continue current diet. RD following.
--- NOTE | 2016-06-02 13:34 | NUR ---
Pt. requested pain medication around 0930 and again at 1:20pm when her roommate requested her pain medication. She was given Columbia 10mg at these times. She complains of her right shouder and pelvis region hurting. She had a warm pack situated on her shoulder this morning before therapy started. Call light remains within her reach.
--- NOTE | 2016-06-02 16:28 | NUR ---
Pt. has rested well this afternoon in bed taking a little nap. She has no voiced complaints or concerns at this time. Will continue to observe and assist as needed. Her call light is in reach.
[2016-06-02 19:15] VITALS: BP 129/65
--- NOTE | 2016-06-02 19:54 | NUR ---
PT RESTING IN BED EATING A SNACK, DENIES NEEDS. BED LOW. CL IN REACH.
--- NOTE | 2016-06-02 20:36 | NUR ---
PT REQ AND REC'D PRN PAIN MEDICATIN WITH HS MEDS. PT DENIES FURTHER NEEDS. BED LOW. CL IN REACH.
--- NOTE | 2016-06-02 23:30 | NUR ---
PT RESTING, EYES CLOSED. BED LOW. CL IN REACH.
--- NOTE | 2016-06-03 02:23 | NUR ---
PT RESTING EYES CLOSED. BED LOW. CL IN REACH.
[2016-06-03 06:20] LABS: BASOPHILS 0.6 % (0.0-2.0); EOSINOPHILS 2.8 % (0-7); HEMATOCRIT 33.6 % (36.0-48.0); HEMOGLOBIN 10.3 g/dL (12-16); IMMATURE GRANULOCYTES 0.2 % (0-5); LYMPHOCYTES 34.4 % (15-50); MCH 25.6 pg (26.0-34.0); MCHC 30.7 g/dL (31.0-37.0); MCV 83.4 fL (80.0-100.0); MEAN PLATELET VOLUME 9.6 fL (7.4-10.4); MONOCYTES 14.5 % (2-11); NEUTROPHILS 47.5 % (40-80); PLATELET COUNT 375 10x3/uL (130-400); RBC 4.03 10x6/uL (4.00-5.40); RDW 16.2 % (11.5-14.5); WBC 4.7 10x3/uL (4.8-10.8)
--- NOTE | 2016-06-03 06:28 | NUR ---
PT UP AND DRESSED FOR THE DAY. PT RESTING IN BED AND DENIES NEEDS. BED LOW. CL IN REACH.
[2016-06-03 06:39] LABS: ANION GAP 11.7 mmol/L (8-16); CALCIUM 8.3 mg/dL (8.5-10.1); CARBON DIOXIDE 26.9 mmol/L (21.0-32.0); POTASSIUM - SERUM 3.6 mmol/L (3.5-5.1)
--- NOTE | 2016-06-03 07:25 | NUR ---
AWAKE,RESTING QUIETLY IN BED.DENIES NEEDS.ASSESSMENT COMPLETED.CL IN EASY REACH,BED IN LOW POSITION.
[2016-06-03 07:56] VITALS: BP 106/60
--- NOTE | 2016-06-03 09:40 | NUR ---
PO MEDS TAKEN WITHOUT DIFFICULTY.
--- NOTE | 2016-06-03 15:47 | NUR ---
CARE TEAM MEETING: PATIENT TENATIVE DISCHARGE DATE IS 06/09/[address] JJ IS HER PCP. SHE HAS A WALKER, CANE , WHEELCHAIR, BSC, SHOWER CHAIR. [facility] IS HER PHARMACY. WILL CONTINUE TO FOLLOW WITH PATIENT UNTIL DISCHARGED
--- NOTE | 2016-06-03 19:52 | NUR ---
PT RECEIVED IN BED WATHCHING TV. NO CONCERNS MADE KNOWN. NO SIGN/SYMPTOMS OF DISTRESS NOTED. CALL LIGHT IN REACH.
[2016-06-03 20:04] VITALS: BP 119/66
--- NOTE | 2016-06-03 23:08 | NUR ---
PT IN BED WITH EYES CLOSED AND CHEST RISING. NO SIGN/SYMPTOMS OF DISTRESS NOTED. CALL LIGHT IN REACH.
--- NOTE | 2016-06-04 04:38 | NUR ---
PT IN BED WITH EYES CLOSED AND CHEST RISING. NO SIGN/SYMPTOMS OF DISTRESS NOTED. CALL LIGHT IN REACH.
--- NOTE | 2016-06-04 08:00 | NUR ---
PATIENT SITTING IN BED FOR BREAKFAST. ALERT/ORIENT X4. CALL LIGHT WITHIN REACH. VOICES NO NEEDS
[2016-06-04 08:20] VITALS: BP 115/50
--- NOTE | 2016-06-04 09:29 | NUR ---
PATIENT IN SHOWER WITH HELP FROM NURSE ASST. SET UP FOR SHOWER DONE. PATIENT ABLE TO GIVE OWN SHOWER AND DRY OFF
--- NOTE | 2016-06-04 12:41 | NUR ---
PATIENT REQUESTING PRN PAIN MEDICATION. THIS NURSE STATED THAT PAIN MED WAS NOT DUE UNTIL 1:08. PATIENT STATED THAT SHE WANTS HER PAIN MEDICATION BROUGHT TO HER BEFORE SHE GOES DOWN TO THERAPY
--- NOTE | 2016-06-04 13:08 | NUR ---
PRN PAIN MEDICATION GIVEN BEFORE PATIENT GOES TO REHAB ROOM FOR THERAPY
--- NOTE | 2016-06-04 15:40 | NUR ---
PATIENT RESTING IN BED AFTER THERAPY. DENIES ANY PAIN/DISC AT THIS TIME.
--- NOTE | 2016-06-04 17:21 | NUR ---
Pt. has been stable this shift. Alert and oriented x 3. She has participated well in therapy today. No signs of discomfort or distress.
--- NOTE | 2016-06-04 17:28 | NUR ---
PRN PAIN MEDICATION GIVEN FOR PELVIX PAIN PER PATIENT REQUEST
[2016-06-04 19:05] VITALS: BP 112/60
--- NOTE | 2016-06-04 21:04 | NUR ---
PT IN BED WITH EYES OPEN WATCHING TV. RECEIVED MEDICATIONS PER MAR WITHOUT DIFFICULTY REFUSING SCHEDULED MOM. PAIN AT 6/10 WITH PRN PAIN MEDICATION AVAILABEL AT 2129. NO OTHER CONCERNS MADE KNOWN AT THIS TIME. CALL LIGHT IN REACH.
--- NOTE | 2016-06-05 02:20 | NUR ---
PT IN BED WITH EYES CLOSED AND CHEST RISING. NO SIGN/SYMPTOMS OF DISTRESS NOTED. CALL LIGHT IN REACH.
[2016-06-05 06:14] LABS: EOSINOPHILS 3.8 % (0-7); HEMATOCRIT 34.9 % (36.0-48.0); HEMOGLOBIN 10.8 g/dL (12-16); IMMATURE GRANULOCYTES 0.3 % (0-5); LYMPHOCYTES 47.1 % (15-50); MCH 25.7 pg (26.0-34.0); MCHC 30.9 g/dL (31.0-37.0); MCV 82.9 fL (80.0-100.0); MEAN PLATELET VOLUME 9.6 fL (7.4-10.4); NEUTROPHILS 34.8 % (40-80); PLATELET COUNT 348 10x3/uL (130-400); RBC 4.21 10x6/uL (4.00-5.40); RDW 16.2 % (11.5-14.5); WBC 3.9 10x3/uL (4.8-10.8)
[2016-06-05 06:33] LABS: ANION GAP 12.5 mmol/L (8-16); CALCIUM 8.2 mg/dL (8.5-10.1); POTASSIUM - SERUM 3.5 mmol/L (3.5-5.1)
--- NOTE | 2016-06-05 07:54 | NUR ---
SITTING UP EATING BREAKFAST. DENIES NEEDS
[2016-06-05 08:37] VITALS: BP 104/62
--- NOTE | 2016-06-05 11:44 | NUR ---
RESTING IN BED. SHE IS TALKING TO VISITOR AT PRESENT. DENIES NEEDS.
--- NOTE | 2016-06-05 16:02 | NUR ---
MET WITH PATIENT AND HER SON REGARDING DISCHARGE PLANS. SHE WILL RETURN HOME WITH [facility]. SHE HAS A WALKER AND DR. JJ IS HER PCP. HER SON WILL FURNISH HER MEALS. WILL CONTINUE TO FOLLOW WITH PATIENT UNTIL DISCHARGED
[2016-06-05 20:06] VITALS: BP 104/64
--- NOTE | 2016-06-05 21:05 | NUR ---
PT IS RESTING IN BED WITH EYES OPEN. ALERT AND ORIENTED X 3. VOICED COMPLAINT OF BACK PAIN LEVEL OF 6. MEDICATED PER MAR. NO SOB NOTED. PT DENIES ANY OTHER NEEDS. SR'S ARE UP X 2 IN BED. CALL LIGHT AND BEDSIDE TABLE ARE WITHIN EASY REACH.
--- NOTE | 2016-06-05 22:16 | NUR ---
PT. IN BED WITH HOB UP FOR COMFORT AND LYING ON RIGHT SIDED. EYES CLOSED AND RESP. DEEP AND EVEN. CALL LIGHT WITHIN REACH.
--- NOTE | 2016-06-06 01:19 | NUR ---
RESTING QUIETLY IN BED WITH EYES CLOSED. RESPS ARE EVEN AND UNLABORED. NO ACUTE DISTRESS NOTED.
--- NOTE | 2016-06-06 03:41 | NUR ---
PT ASSISTED TO THE BATHROOM WITH SBA FOR ALL TASKS. NO FURTHER NEEDS VOICED.
--- NOTE | 2016-06-06 06:08 | NUR ---
PT RESTING IN BED WITH EYES CLOSED.
[2016-06-06 07:00] VITALS: BP 133/79
--- NOTE | 2016-06-06 08:45 | NUR ---
SITTING UP ON SIDE OF BED EATING BREAKFAST. DENIES NEEDS
--- NOTE | 2016-06-06 12:00 | NUR ---
EATING LUNCH IN ROOM. DENIES NEEDS. USES W/C FOR MOTION ASST.
--- NOTE | 2016-06-06 16:48 | NUR ---
LAYING IN BED RESTING AND TALKING TO ROOM MATE. HER AND ROOM MATE TOOK THEIR W/C FOR A STROLL TO FRONT OF [facility] AND BACK TO REHAB UNIT EARLIER. NOW SHE IS TIRED AND READY TO REST. PAIN CONTROLLED.
--- NOTE | 2016-06-06 19:40 | NUR ---
Pt pleasant, alert and oriented, conversive, no s/s of acute distress.
[2016-06-06 20:00] VITALS: BP 143/74
--- NOTE | 2016-06-07 02:58 | NUR ---
PT RESTING ON RIGHT SIDE, RESPIRATIONS REGULAR AND UNLABORED, NO S/S OF ACUTE DISTRESS.
--- NOTE | 2016-06-07 05:39 | NUR ---
ASSISTED PT TO BATHROOM, ALERT, FRIENDLY, CONVERSIVE.
[2016-06-07 07:00] VITALS: BP 119/48
--- NOTE | 2016-06-07 09:43 | NUR ---
RESTING QUIETLY IN BED. PAIN MEDS GIVEN ORDERED AND REQUESTED. DENIES INCREASED PAIN TO PELVIS. USES W/C FOR NAVIGATION ASST. PEDAL PULSES PRESENT X2.
--- NOTE | 2016-06-07 12:05 | NUR ---
EATING LUNCH IN ROOM. TRANSFERS FROM BED TO CHAIR WITH MINIMAL ASST. CONT OF B/B. PAIN CONTROLLED ON CURRENT MEDS
--- NOTE | 2016-06-07 16:10 | NUR ---
IN W/C ROLLING AROUND UNIT WITH ROOM MATE.. PAIN MEDS EFFECTIVE FOR PELVIS AND HIP PAIN.
[2016-06-07 19:00] VITALS: BP 101/57
--- NOTE | 2016-06-07 20:10 | NUR ---
PT IN BED WITH HOB UP FOR COMFORT, RESTING QUIETLY, RESPIRATIONS EVEN AND UNLABORED, BED IN LOWEST POSITION AND CALL LIGHT WITHIN REACH.
--- NOTE | 2016-06-08 00:08 | NUR ---
PT IN BED WITH HOB UP FOR COMFORT, EYES CLOSED, CHEST RISING AND FALLING, BED IN LOWEST POSITION AND CALL LIGHT WITHIN REACH.
--- NOTE | 2016-06-08 03:54 | NUR ---
PT RESTING, EYES CLOSED. BED LOW. CL IN REACH.
--- NOTE | 2016-06-08 07:30 | NUR ---
PT IS RESTING IN BED WITH EYES OPEN. ALERT AND ORIENTED X 3. DENIES ACUTE DISCOMFORT AT THIS TIME. SR'S ARE UP X 2 IN BED. CALL LIGHT AND BEDSIDE TABLE ARE WITHIN EASY REACH.
[2016-06-08 08:04] LABS: EOSINOPHILS 4.8 % (0-7); HEMATOCRIT 33.9 % (36.0-48.0); HEMOGLOBIN 10.5 g/dL (12-16); IMMATURE GRANULOCYTES 0.3 % (0-5); LYMPHOCYTES 41.8 % (15-50); MCH 25.7 pg (26.0-34.0); MCV 82.9 fL (80.0-100.0); MEAN PLATELET VOLUME 8.9 fL (7.4-10.4); MONOCYTES 14.8 % (2-11); NEUTROPHILS 37.3 % (40-80); PLATELET COUNT 318 10x3/uL (130-400); RBC 4.09 10x6/uL (4.00-5.40)
[2016-06-08 08:19] LABS: ANION GAP 9.8 mmol/L (8-16); CALCIUM 8.5 mg/dL (8.5-10.1); CARBON DIOXIDE 29.1 mmol/L (21.0-32.0); POTASSIUM - SERUM 3.9 mmol/L (3.5-5.1)
[2016-06-08 10:55] VITALS: BP 100/50
--- NOTE | 2016-06-08 11:00 | NUR ---
PT IS PARTICIPATING IN THERAPY AT THIS TIME. NO ACUTE DISTRESS NOTED.
--- NOTE | 2016-06-08 12:55 | NUR ---
PT IS FEEDING SELF LUNCH IN HER ROOM. NO NEEDS VOICED.
--- NOTE | 2016-06-08 15:00 | NUR ---
PT IS RESTING IN BED WITH EYES CLOSED. RESPS ARE EVEN AND UNLABORED. NO ACUTE DISTRESS NOTED.
--- NOTE | 2016-06-08 17:45 | NUR ---
PT IS FEEDING SELF SUPPER IN HER ROOM. NO NEEDS VOICED.
--- NOTE | 2016-06-08 18:36 | NUR ---
RESTING IN BED WATCHING TV. NO S/S DISTRESS
--- NOTE | 2016-06-08 19:30 | NUR ---
IN BED, AWAKE. DENIES NEEDS.
[2016-06-08 20:30] VITALS: BP 120/67
--- NOTE | 2016-06-08 20:30 | NUR ---
ASSESSMENT AND HS MEDS COMPLETE. GAVE PATIENT FLEXERIL 10MG AND NORCO 10/325 X1 TAB PO FOR PAIN WITH CRAMPING IN PELVIS, RIGHT GROIN AND LOW BACK. DENIES FURTHER NEEDS.
--- NOTE | 2016-06-08 21:40 | NUR ---
REMAINS AWAKE. DENIES CURRENT PAIN AT REST. REQUESTED AND WAS GIVEN ICE CREAM FOR A SNACK. DENIES FURTHER NEEDS.
--- NOTE | 2016-06-08 22:40 | NUR ---
RESTING QUEITLY IN BED, EYES CLOSED.
--- NOTE | 2016-06-09 | NUR ---
REMAINS IN BED, EYES CLOSED. RESTING QUIETLY.
--- NOTE | 2016-06-09 01:50 | NUR ---
IN BED, EYES CLOSED. APPEARS COMFORTABLE.
--- NOTE | 2016-06-09 04:20 | NUR ---
CONTINUES IN BED, EYES CLOSED. RESPIRATIONS UNLABORED.
--- NOTE | 2016-06-09 05:35 | NUR ---
REMIANS IN BED, EYES CLOSED. NO APPARENT DISCOMFORT.
--- NOTE | 2016-06-09 08:00 | NUR ---
SHIFT ASSMT COMPLETED.DENIES NEEDS.PLAN FOR DC HOME TODAY.CL IN REACH.
--- NOTE | 2016-06-09 09:23 | NUR ---
PATIENT DISCHARGING HOME TODAY WITH SON. [facility]. PATIENT HAS A ROLLING WALKER. DR. JJ 06/18/16 @ 10:40.PATIENT CHOICE FORM FOR HOME HEALTH AND [facility] FORM SIGNED, EXPLAINED AND FILED IN CHART. PATIENT EDUCATED ON SAFETY WHEN WALKING WITH WALKER.
[2016-06-09 09:31] VITALS: BP 110/65
--- NOTE | 2016-06-09 11:04 | NUR ---
NUTRITION MONITORING & EVAL CHART REVIEWED. PT WITH GOOD PO INTAKE RECENT MEALS. OMARI DIET. LAST RECORDED BM 06/06 WILL CONTINUE TO PROVIDE DIET, MONITOR PT PROGRESS. RD FOLLOWING
[2016-06-09] MEDS ORDERED: MIRALAX17 GM PO (11:26)
--- NOTE | 2016-06-09 12:00 | NUR ---
REVIEWED MEDS AND HOME CARE WITH SON PRESENT.STATES UNDERSTANDING.
--- NOTE | 2016-06-09 13:00 | NUR ---
DC'D IN STABLE CONDITION.
== END 2016-06-09 13:00 | disposition home health service (06) | DRG 560 ==
LOC: D.REHAB 13:14
PROVIDERS: ADMIT Emergency Medicine
DX: S32.591D Other specified fracture of right pubis, subsequent encounter for fracture with routine healing (principal); E87.1 Hypo-osmolality and hyponatremia; W01.0XXD Fall on same level from slipping, tripping and stumbling without subsequent striking against object, subsequent encounter; R00.0 Tachycardia, unspecified; R26.9 Unspecified abnormalities of gait and mobility; R73.09 Other abnormal glucose; M19.90 Unspecified osteoarthritis, unspecified site; K22.5 Diverticulum of esophagus, acquired; G72.9 Myopathy, unspecified; E78.5 Hyperlipidemia, unspecified; N39.41 Urge incontinence; I10 Essential (primary) hypertension; H26.9 Unspecified cataract; E87.8 Other disorders of electrolyte and fluid balance, not elsewhere classified; F41.8 Other specified anxiety disorders; R13.10 Dysphagia, unspecified; M25.551 Pain in right hip

== ENCOUNTER 2016-07-29 14:23 | Inpatient (IN) | payer MEDICARE, OTHER ==
[~2016-07-29] VITALS: Ht 177.8 cm; Wt 89.7 kg
--- NOTE | ~2016-07-29 | DS ---
PATIENT:KARIN MULLINS :28 MEDICAL RECORD: [id number] DISCHARGE SUMMARY ADMISSION DATE: 07/29/16 DISCHARGE DATE: 08/04/16 DISCHARGE DIAGNOSES: ____ pneumonia, iron deficiency anemia, urinary tract infection, Zenker's diverticulum, depression, constipation, impaired glucose tolerance. HOSPITAL COURSE: An 85-year-old female admitted with increasing cough, congestion. On x-ray, she had evidence of bilateral pneumonia. She was admitted to the hospital, placed on IV Levaquin, Zithromax, DuoNeb updrafts q.6 hours. She also underwent PT. Her hemoglobin dropped from 10 to 8.5. Anemia workup showed evidence of iron deficiency anemia. Her stool was negative for occult blood. She had a previous pelvic fracture a month prior which caused anemia as well. The patient has had a prior history of a large Zenker's diverticulum which she deferred surgery on last year. It is possible that her anemia is from that. Unless she is asymptomatic, start on oral iron. She had been accepted to rehab. Her chest x-ray today shows clearing of her pneumonias bilaterally. She still had some productive cough, but she is not hypoxic. She had been walking with physical therapy. Discharged to [place] inpatient physical rehab, been on oral iron b.i.d. Check CBC weekly. Recheck stools. If possible, we would recommend repeat GI consultation. DISCHARGE MEDICATIONS: Levaquin 750 mg p.o. daily for 4 days and discontinue, ferrous sulfate 325 mg b.i.d. for 1 month, Mirapex 0.125 mg p.o. at h.s. for leg cramps, Lopressor 25 mg b.i.d., aspirin 81 mg daily, Prozac 20 mg daily, Flexeril 10 mg q.6 p.r.n. back pain, DuoNeb updrafts q.6 hours, [place] 10/325 one q.6 for breakthrough pain, MiraLax 17 grams p.o. daily, Klonopin 0.5 mg p.o. at h.s. DIET: Low cholesterol. FOLLOWUP: See me in 1 week post-rehab discharge with CBC and BMP. TRANSINT:[id number] Voice Confirmation ID: [id number] DOCUMENT ID: [id number] DE JJ MD CC: [id number] DICTATION DATE: 08/04/16 1322 LABELING STRATEGIST: 08/05/16 0313 DIS IN 08/04/16 [facility] [address] [id number]
[~2016-07-29 14:23] MED LIST changes: +MIRALAX17 GM PO
[2016-07-29 15:45] LABS: BASOPHILS 0.1 % (0-2); EOSINOPHILS 0 % (0-7); HEMATOCRIT 34.2 % (36.0-48.0); HEMOGLOBIN 10.2 g/dL (12-16); IMMATURE GRANULOCYTES 0.2 % (0-5); LYMPHOCYTES 5.8 % (15-50); MCH 23.4 pg (26.0-34.0); MCHC 29.8 g/dL (31.0-37.0); MCV 78.6 fL (80.0-100.0); MEAN PLATELET VOLUME 10.2 fL (7.4-10.4); MONOCYTES 6.1 % (2-11); NEUTROPHILS 87.8 % (40-80); PLATELET COUNT 293 10x3/uL (130-400); RBC 4.35 10x6/uL (4.00-5.40); RDW 15.7 % (11.5-14.5); WBC 16.1 10x3/uL (4.8-10.8)
[2016-07-29 16:25] LABS: POTASSIUM - SERUM 3.7 mmol/L (3.5-5.1)
[2016-07-29 16:27] LABS: ALBUMIN 2.6 g/dL (3.4-5.0); ANION GAP 13.6 mmol/L (8-16); BILIRUBIN - TOTAL 0.66 mg/dL (0.2-1.3); CALCIUM 8.4 mg/dL (8.5-10.1); CARBON DIOXIDE 24.1 mmol/L (21.0-32.0); PROTEIN - SERUM 6.5 g/dL (6.4-8.2)
[2016-07-29 16:36] LABS: MAGNESIUM - SERUM 1.7 mg/dL (1.8-2.4); TROPONIN-I 0.03 ng/mL (0.000-0.060)
[2016-07-29 17:33] LABS: APPEARANCE CLEAR (CLEAR); BILIRUBIN NEGATIVE (NEGATIVE); COLOR YELLOW (YELLOW); GLUCOSE NEGATIVE (NEGATIVE); KETONE NEGATIVE (NEGATIVE); LEUKOCYTE ESTERASE TRACE (NEGATIVE); NITRITE POSITIVE (NEGATIVE); PROTEIN NEGATIVE (NEGATIVE); SPECIFIC GRAVITY 1.015 (1.005-1.020); UROBILINOGEN NORMAL (NORMAL)
[2016-07-29 17:34] LABS: BACTERIA MANY /hpf (NONE SEEN); EPITHELIAL CELLS 0-5 /hpf (0-5); RED CELLS - URINE 0-5 /hpf (0-5)
[2016-07-29 20:00] VITALS: BP 100/55
[2016-07-30] VITALS (7 sets, daily range): BP systolic 97–113; BP diastolic 49–65; Ht 177.8 cm; Wt 89.7 kg
[2016-07-30] MEDS ORDERED: KLONOPIN0.5 MG PO (04:11)
[2016-07-30 05:09] LABS: BASOPHILS 0.2 % (0-2); EOSINOPHILS 0.4 % (0-7); HEMATOCRIT 29.1 % (36.0-48.0); HEMOGLOBIN 8.6 g/dL (12-16); IMMATURE GRANULOCYTES 0.3 % (0-5); LYMPHOCYTES 13.8 % (15-50); MCH 23.4 pg (26.0-34.0); MCHC 29.6 g/dL (31.0-37.0); MCV 79.3 fL (80.0-100.0); MEAN PLATELET VOLUME 9.8 fL (7.4-10.4); MONOCYTES 5.7 % (2-11); NEUTROPHILS 79.6 % (40-80); RBC 3.67 10x6/uL (4.00-5.40); RDW 15.9 % (11.5-14.5)
[2016-07-30 05:24] LABS: PLATELET COUNT 222 10x3/uL (130-400); WBC 9.4 10x3/uL (4.8-10.8)
[2016-07-30 05:52] LABS: ANION GAP 10.9 mmol/L (8-16); CALCIUM 7.7 mg/dL (8.5-10.1); CARBON DIOXIDE 26.3 mmol/L (21.0-32.0); POTASSIUM - SERUM 3.2 mmol/L (3.5-5.1); T4 THYROXIN - FREE 1.18 ng/dL (0.76-1.46); THYROID STIMULATING HORMONE 0.96 uIU/mL (0.36-3.74)
[2016-07-31] VITALS: BP 104/67
[2016-07-31 04:00] VITALS: BP 106/86
[2016-07-31 04:37] LABS: BASOPHILS 0.1 % (0-2); EOSINOPHILS 1.3 % (0-7); HEMATOCRIT 27.5 % (36.0-48.0); HEMOGLOBIN 8.1 g/dL (12-16); IMMATURE GRANULOCYTES 0.1 % (0-5); MCH 23.3 pg (26.0-34.0); MCHC 29.5 g/dL (31.0-37.0); MEAN PLATELET VOLUME 9.5 fL (7.4-10.4); MONOCYTES 4.9 % (2-11); NEUTROPHILS 77.6 % (40-80); PLATELET COUNT 192 10x3/uL (130-400); RBC 3.48 10x6/uL (4.00-5.40); RDW 16.3 % (11.5-14.5); WBC 6.9 10x3/uL (4.8-10.8)
[2016-07-31 04:43] LABS: ANION GAP 9.7 mmol/L (8-16); CALCIUM 8.1 mg/dL (8.5-10.1); CARBON DIOXIDE 24.7 mmol/L (21.0-32.0); POTASSIUM - SERUM 3.4 mmol/L (3.5-5.1)
[2016-07-31 07:15] LABS: MAGNESIUM - SERUM 1.7 mg/dL (1.8-2.4); PHOSPHOROUS 2.9 mg/dL (2.5-4.9)
[2016-07-31 08:07] VITALS: BP 128/56
[2016-07-31 16:00] VITALS: BP 112/59
[2016-07-31 19:00] VITALS: BP 134/70
[2016-08-01] VITALS: BP 122/56
[2016-08-01 04:00] VITALS: BP 125/65
[2016-08-01 06:20] LABS: PHOSPHOROUS 3.7 mg/dL (2.5-4.9); POTASSIUM - SERUM 4.2 mmol/L (3.5-5.1)
[2016-08-01 08:00] VITALS: BP 106/64; BP 122/74
[2016-08-01 12:00] VITALS: BP 119/70
[2016-08-01 16:00] VITALS: BP 118/66
[2016-08-01 19:00] VITALS: BP 115/66
[2016-08-02] VITALS: BP 149/78
[2016-08-02 04:23] VITALS: BP 149/87
[2016-08-02 06:29] LABS: BASOPHILS 0.9 % (0-2); EOSINOPHILS 5.3 % (0-7); HEMATOCRIT 27.2 % (36.0-48.0); HEMOGLOBIN 8.1 g/dL (12-16); IMMATURE GRANULOCYTES 0.7 % (0-5); LYMPHOCYTES 18.5 % (15-50); MCH 23.2 pg (26.0-34.0); MCHC 29.8 g/dL (31.0-37.0); MCV 77.9 fL (80.0-100.0); MEAN PLATELET VOLUME 10.1 fL (7.4-10.4); MONOCYTES 10.8 % (2-11); NEUTROPHILS 63.8 % (40-80); RBC 3.49 10x6/uL (4.00-5.40); RDW 16.2 % (11.5-14.5); WBC 4.5 10x3/uL (4.8-10.8)
[2016-08-02 06:31] LABS: PLATELET COUNT 248 10x3/uL (130-400)
[2016-08-02 06:33] LABS: ANION GAP 9.8 mmol/L (8-16); CALCIUM 7.8 mg/dL (8.5-10.1); CREATININE - SERUM 0.8 mg/dL (0.6-1.3); POTASSIUM - SERUM 3.8 mmol/L (3.5-5.1)
[2016-08-02 08:00] VITALS: BP 109/64
[2016-08-02 12:00] VITALS: BP 118/68
[2016-08-02 16:41] LABS: % SATURATION 7 % (15-55); IRON 19 ug/dl (35-150); TOTAL IRON BIND CAPACITY 262 ug/dl (260-445); UNSAT IRON BIND CAPACITY 243 ug/dl (150-375)
[2016-08-02 20:23] VITALS: BP 113/53
[2016-08-02 23:59] VITALS: BP 122/53
[2016-08-03 04:46] VITALS: BP 138/79
[2016-08-03 08:22] LABS: MAGNESIUM - SERUM 1.9 mg/dL (1.8-2.4); PHOSPHOROUS 3.4 mg/dL (2.5-4.9); POTASSIUM - SERUM 3.5 mmol/L (3.5-5.1)
[2016-08-03 08:36] VITALS: BP 136/72
[2016-08-03 11:38] VITALS: BP 133/80
[2016-08-03 15:43] VITALS: BP 137/74
[2016-08-03 20:00] VITALS: BP 124/72
[2016-08-04 00:59] VITALS: BP 115/78
[2016-08-04 05:20] LABS: BASOPHILS 0.6 % (0-2); EOSINOPHILS 7.2 % (0-7); HEMATOCRIT 28.6 % (36.0-48.0); HEMOGLOBIN 8.3 g/dL (12-16); IMMATURE GRANULOCYTES 0.4 % (0-5); LYMPHOCYTES 26.1 % (15-50); MCH 22.9 pg (26.0-34.0); MCV 78.8 fL (80.0-100.0); MEAN PLATELET VOLUME 9.3 fL (7.4-10.4); MONOCYTES 12.6 % (2-11); NEUTROPHILS 53.1 % (40-80); PLATELET COUNT 295 10x3/uL (130-400); RBC 3.63 10x6/uL (4.00-5.40); RDW 16.3 % (11.5-14.5)
[2016-08-04 05:56] LABS: MAGNESIUM - SERUM 1.9 mg/dL (1.8-2.4); PHOSPHOROUS 4.1 mg/dL (2.5-4.9); POTASSIUM - SERUM 3.9 mmol/L (3.5-5.1)
[2016-08-04 06:06] VITALS: BP 136/73
[2016-08-04 07:53] VITALS: BP 140/70
--- NOTE | 2016-08-04 08:14 | HP ---
PATIENT: KARIN MULLINS MEDICAL RECORD: [id number] ACCOUNT: [id number] LOCATION:[address] : 28 ADMISSION DATE: 07/29/16 HISTORY AND PHYSICAL EXAMINATION REASON FOR ADMISSION: Cough, congestion, and weakness. HISTORY OF PRESENT ILLNESS: The patient is an 85-year-old female, who was hospitalized at [place] end of May for a fall with pelvic fracture. She was in the rehab at [place] and discharged approximately 3 weeks ago. She had been feeling well, got up last night to go the bathroom and her legs gave way. She slid down to the floor, but did not fall or injure herself. She was nauseated and vomited some, but had been coughing all evening. She denied fever. Because of increasing cough and shortness of breath, she came to the Emergency Room this afternoon by EMS. On admission, she was afebrile with temperature of 98 degrees Fahrenheit and sat of 95% on 2 L. Chest x-ray showed bilateral pneumonia. She is not in respiratory distress and was now admitted for possible hospital-acquired pneumonia. She has had some vomiting, but no diarrhea or chest pain. PAST MEDICAL HISTORY: Recent pelvic fracture, improved to walker status currently; history of osteoarthritis, cataracts, depression, anxiety, hyperlipidemia, glucose intolerance, Zenker diverticulum with dysphagia, hypertension. 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 SOCIAL HISTORY: , son and daughter want to care of her locally. She is a nonsmoker, nondrinker lifelong. ALLERGIES: PENICILLIN. FAMILY HISTORY: Both parents of cardiovascular disease complications. HOME MEDICATIONS: Flexeril 1 p.o. q.6 hours p.r.n. muscle spasm, Klonopin 0.5 mg p.o. q.12 hours p.r.n. anxiety, aspirin 81 mg daily, Prozac 40 mg a day, Dyazide 1 p.o. q.a.m., hydrocodone 5/325 one q.6 hours for severe pain, metoprolol tartrate 50 mg tablets 1/2 tab b.i.d., Anusol-HC cream topically p.r.n., Protonix 40 mg p.o. daily, allopurinol 300 mg a day. REVIEW OF SYSTEMS: GENERAL: She was feeling better until last night, has been now fatigued, poor appetite. HEENT: No visual change, sinus congestion, or sore throat. RESPIRATORY: Productive cough since last night, repetitive. No hemoptysis, but sputum has been dark and green. No prior history of pneumonia or smoking. CARDIAC: No chest pain, palpitations. GASTROINTESTINAL: She has had nausea with some vomiting. No diarrhea or abdominal pain. GENITOURINARY: No incontinence. She does have some mild dysuria. GYNECOLOGICAL: No vaginal bleeding. INTEGUMENTARY: No rash. MUSCULOSKELETAL: Chronic arthralgias in her hips and knees. She has had pelvic pain, which has improved since her fall. HISTORY AND PHYSICAL [id number] KARIN MULLINS NEUROLOGIC: No history of stroke, TIA or vascular headaches. PHYSICAL EXAMINATION: VITAL SIGNS: Temperature 98.2 Fahrenheit, heart rates 90-100 and irregularly irregular, respirations are 18, blood pressure 130/80, sats 95% on 2 L. GENERAL: Alert, oriented and anxious, not tachypneic. HEENT: Eyes are clear with cataract implants. Oropharynx shows some dried vomitus on her lips. Mucosa is moist. NECK: Supple. LUNGS: She has some wheezes in her bases. No rales. She is not retracting. HEART: Irregularly irregular without murmur. ABDOMEN: Soft, nontender. Bowel sounds are active. RECTAL: Deferred. EXTREMITIES: A 1+ pretibial edema of the knees bilaterally. NEUROLOGIC: No localizing neurologic motor deficits are appreciated. Oriented times 3. Cranial nerves intact. Gait not tested. INTEGUMENT: No bruising is noted. LABORATORY DATA: White count 16,000. Urinalysis is pending. Chest x-ray shows bilateral pneumonia. ASSESSMENT: Hospital-acquired pneumonia, recent right pubic ramus fracture, hypertension, depression, atrial fibrillation of new onset, history of gout, gastroesophageal reflux disease. PLAN: The patient will be admitted to the medical floor with cardiac monitoring, antibiotics appropriate for hospital-acquired pneumonia. Updrafts. Further workup pending clinical course. The patient states she is DNR. TRANSINT:[id number] Voice Confirmation ID: [id number] DOCUMENT ID: [id number] 08/03/2016 Edited assessment per jone Rios TIMOTHY MD at 0814 CC: [id number] DICTATION DATE: 07/29/16 174 ALTITUDE CHAMBER TECHNICIAN: 07/29/[id number] ADM IN [facility] [address] [place] [address]
[2016-08-04 08:20] LABS: FOLATE (FOLIC ACID) - SERUM 10.4 ng/mL (>3.0)
[2016-08-04 11:38] VITALS: BP 120/74
[2016-08-04] MEDS ORDERED: FERROUS SULFAT325 MG PO (13:16)
[2016-08-04] MEDS ORDERED: MIRAPEX0.125 MG PO (13:17)
[2016-08-04] MEDS ORDERED: LEVAQUIN750 MG PO (13:17)
== END 2016-08-04 16:17 | DRG 194 ==
LOC: D.ER 14:23 → D.M2 18:00
PROVIDERS: Emergency Medicine; Family Medicine; ADMIT Family Medicine
DX: J18.9 Pneumonia, unspecified organism (principal); N39.0 Urinary tract infection, site not specified; I48.91 Unspecified atrial fibrillation; K21.9 Gastro-esophageal reflux disease without esophagitis; D50.9 Iron deficiency anemia, unspecified; E78.5 Hyperlipidemia, unspecified; F41.9 Anxiety disorder, unspecified; F32.9 Major depressive disorder, single episode, unspecified; I10 Essential (primary) hypertension; K59.00 Constipation, unspecified; K22.5 Diverticulum of esophagus, acquired

== ENCOUNTER 2016-08-04 16:02 | Inpatient (IN) | payer MEDICARE, OTHER ==
[~2016-08-04] VITALS: Ht 177.8 cm; Wt 86.2 kg
--- NOTE | ~2016-08-04 | CN ---
PATIENT NAME:KARIN MULLINS MEDICAL RECORD: [id number] : 28 LOCATION:[id number] ADMIT DATE: 08/04/16 ACCOUNT: [id number] CONSULTING PHYSICIAN: KELLEE GLOVER MD REFERRING PHYSICIAN: JENS GONZALEZ MD DATE OF CONSULTATION: 08/12/2016 Consultation Note Addendum CHIEF COMPLAINT: Zenker's diverticulum. HISTORY OF PRESENT ILLNESS: The patient has had episodes of pneumonia. I believe this is due to aspiration pneumonia. She has a known Zenker's diverticulum. I have personally reviewed the upper GI images. I have personally reviewed the radiologist's report. There is some question on the images as to whether this is a right side or left side Zenker's. To my examination, this appears to be a left-sided Zenker's and it appears to be very long. When I pressed on the left side of her neck, she begins to cough and I think it is due to reflux of contents within the Zenker's diverticulum and this food refluxes down into her trachea causing coughing. My plan for her has been discussed with Dr. Gonzalez. My plan would be for her to recover from her current bout of pneumonia and then go and repair the Zenker's diverticulum. The evaluation was performed in the presence of a female nurse. This is a consultation note addendum. For the typed portion of the consult note including the past medical and surgical history, allergies, social history as well as current medications, please see the chart. I have actually seen this patient before for the same condition. She refused surgery at that time. She is now willing to undergo surgery. PHYSICAL EXAMINATION: GENERAL: The patient does not appear acutely ill. She does appear chronically ill. The entire physical examination was performed with the presence of a female nurse. VITAL SIGNS: Reviewed. HEAD: External ears appear normal. EYES: Extraocular movements are intact. NECK: Trachea is midline. CHEST: No intercostal retractions. PULMONARY: Nonlabored. No stridor. She does have a cough. EXTREMITIES: No peripheral cyanosis. INTEGUMENT: No rash, no ulcerations. NEUROLOGIC: Nonfocal, no lethargy. PSYCHIATRIC: Anxious affect. BACK: Mild thoracic kyphosis. LYMPHATICS: No lymphangitic streaking of the exposed extremities. IMPRESSION: Zenker's diverticulum, likely left rather than right. PLAN: When she is recovered from pneumonia, I will see her in the office. We will set her up for Zenker's diverticulectomy. TRANSINT:[id number] Voice Confirmation ID: [id number] DOCUMENT ID: [id number] CONSULT REPORT [id number] KARIN MULLINS ROBERT MD CC: JENS GONZALEZ MD [id number] DICTATION DATE: 08/17/16 1021 PLASTIC EXTRUSION OPERATOR: 08/17/16 1151 ADM IN [place] [id number] [place] [id number]
[~2016-08-04 16:02] MED LIST changes: +FERROUS SULFAT325 MG PO; +KLONOPIN0.5 MG PO; +LEVAQUIN750 MG PO; +MIRAPEX0.125 MG PO
--- NOTE | 2016-08-04 16:10 | NUR ---
RECIEVED ON FLOOR TO ROOM 1117A/WC.PLACED ON O2@2L/NC.ORIENTED TO ROOM AND SURROUNDINGS.CL IN REACH.
[2016-08-04 16:45] VITALS: BP 146/60; BMI 27.3
--- NOTE | 2016-08-04 19:47 | NUR ---
PT SITTING UP IN W/C BEING ASSISTED TO BATHROOM. PT REQUESTING HER HS NIGHTTIME MEDICATIONS.
[2016-08-04 21:02] VITALS: BP 146/60
--- NOTE | 2016-08-05 01:00 | NUR ---
AWAKE ASSISTED PT MOD ASSIST OF ONE TO BATHROOM, PT ATTEMPED TO PERFORM TOILETING FUNCTIONS, HAD DIFFICULTY WITH PULLING UP PANTS.
--- NOTE | 2016-08-05 04:02 | NUR ---
PT STATES SHE IS HAVING A 'GOUT' FLAREUP, AND WOULD LIKE SOMETHING FOR IT. SHE ISN'T ABLE TO RECALL WHAT HAS HELPED WITH RESOLUTION PRIOR. WILL LEAVE NOTE FOR PHYSICIAN.
--- NOTE | 2016-08-05 05:40 | NUR ---
PT STATES HER FEET PAIN IS EASING UP.. LEFT NOTE FOR PHYSICIAN.
[2016-08-05 06:56] LABS: ALBUMIN 2.3 g/dL (3.4-5.0); ANION GAP 11.2 mmol/L (8-16); BILIRUBIN - TOTAL 0.4 mg/dL (0.2-1.3); CALCIUM 8.3 mg/dL (8.5-10.1); CARBON DIOXIDE 28.4 mmol/L (21.0-32.0); CREATININE - SERUM 0.8 mg/dL (0.6-1.3); POTASSIUM - SERUM 3.6 mmol/L (3.5-5.1); PROTEIN - SERUM 6.2 g/dL (6.4-8.2)
--- NOTE | 2016-08-05 07:33 | NUR ---
RESTING QUIETLY IN BED, EYES CLOSED. SIDE RAILS UP X2. BED ALARM IN PLACE. OXYGEN IN PLACE CALL LIGHT IN REACH
[2016-08-05 09:05] VITALS: BP 109/65
--- NOTE | 2016-08-05 12:02 | NUR ---
EATING LUNCH IN ROOM SON HAS VISITED. IS NEEDY ASKING FOR ASST WITH SMALL TASKS ALSO HAS BEEN INCONT OF URINE. DENIES PAIN. CALL LIGHT IN REACH
--- NOTE | 2016-08-05 16:59 | NUR ---
CARE TEAM MEETING: PATIENT NEW TO UNIT AND WILL BE RA AT NEXT MEETING. PLANS ARE FOR PATIENT TO RETURN HOME WITH HER SON. WILL CONTINUE TO FOLLOW WITH PATIENT UNTIL DISCHARGED
--- NOTE | 2016-08-05 18:04 | NUR ---
SITTING UP IN BED EATING SUPPER AND WATCHING TV. ABLE TO MAKE NEEDS KNOWN. C/O WEAKNESS AND TO HAVE SOMEONE HELP HER WITH TASKS. NEEDS ENCOURAGEMENT TO DO THINGS FOR SELF.
--- NOTE | 2016-08-05 19:34 | NUR ---
PT RESTING QUIETLY WITH EYES CLOSED, RESPIRATIONS REGULAR AND UNLABORED.
[2016-08-05 19:54] VITALS: BP 142/68
--- NOTE | 2016-08-06 04:10 | NUR ---
PT RESTING WITH EYES CLOSED, NO S/S OF ACUTE DISTRESS.
--- NOTE | 2016-08-06 06:58 | NUR ---
PT STATED SHE SLEPT THROUGH THE NIGHT, PT STATES SHE HASN'T COUGHED, PT INCONTINENT OF URINE.
--- NOTE | 2016-08-06 08:15 | NUR ---
PT RESTING IN BED WITH EYES OPEN CALL LIGHT IN REACH NO PROBLEMS WILL MONITER
[2016-08-06 09:42] VITALS: BP 134/73
--- NOTE | 2016-08-06 10:35 | NUR ---
PT REQ AND REC'D PRN DELSYM PER ORDERS AT THIS TIME.
--- NOTE | 2016-08-06 18:17 | NUR ---
PT UP IN WHEELCHAIR IN ROOM CALL LIGHT IN REACH NO PROBLEMS WILL MONITER
--- NOTE | 2016-08-06 19:15 | NUR ---
PT RECEIVED IN BED WITH EYE OPEN AND CHEST RISING. COMPLAIN OF SYMPTOMS OF RESTLESS LEG SYNDROME. IN FORM MEDICATIONS WOULD BE AVAILABLE AFTER 1999. NO OTHER NEEDS OR CONCERNS NOTED. CALL LIGHT IN REACH. WILL CONTINUE TO OBSERVE.
[2016-08-06 22:11] VITALS: BP 153/72
--- NOTE | 2016-08-06 23:18 | NUR ---
PT IN BED WITH EYES CLOSED AND CHEST RISING. RECEIVED HS MEDICATIONS PER MAY WITH PRN NORCO GIVEN FOR PAIN TO BILATERAL LOWER EXTREMITIES. AT 2234 PT COMPLAINS OF COUGH WITH PRN DELSYM GIVEN. NO OTHER NEEDS MADE KNOWN AT THIS TIME. CALL LIGHT IN REACH. WILL CONTINUE TO OBSERVE.
--- NOTE | 2016-08-07 02:39 | NUR ---
PT IN BED WITH EYES CLOSED AND CHEST RISING. NO SIGN/SYMPTOMS OF DISTRESS NOTED. CALL LIGHT IN REACH. WILL CONTINUE TO OBSERVE.
[2016-08-07 07:18] LABS: BASOPHILS 0.3 % (0-2); EOSINOPHILS 3.8 % (0-7); HEMATOCRIT 28.7 % (36.0-48.0); HEMOGLOBIN 8.6 g/dL (12-16); IMMATURE GRANULOCYTES 0.3 % (0-5); LYMPHOCYTES 23.2 % (15-50); MCH 23.4 pg (26.0-34.0); MEAN PLATELET VOLUME 9.3 fL (7.4-10.4); MONOCYTES 5.9 % (2-11); NEUTROPHILS 66.5 % (40-80); PLATELET COUNT 327 10x3/uL (130-400); RBC 3.68 10x6/uL (4.00-5.40); RDW 16.6 % (11.5-14.5); WBC 5.8 10x3/uL (4.8-10.8)
[2016-08-07 07:47] LABS: ANION GAP 10.4 mmol/L (8-16); CALCIUM 8.2 mg/dL (8.5-10.1); CARBON DIOXIDE 28.5 mmol/L (21.0-32.0); POTASSIUM - SERUM 3.9 mmol/L (3.5-5.1)
--- NOTE | 2016-08-07 08:34 | NUR ---
PT RESTING IN BED WITH EYES OPEN CALL LIGHT IN REACH NO PROBLEMS WILL MONITER
[2016-08-07 09:01] VITALS: BP 156/87
--- NOTE | 2016-08-07 16:41 | NUR ---
PATIENT ADMITTED TO REHAB FROM ACUTE FLOOR. DR. JJ IS HER PCP. SHE USES [facility] FOR HER PHARMACY. DME AT HOME IS B[facility], PIOTR, W/C, SHOWER CHAIR. SHE IS OF [employer] [place]. WILL CONTINUE TO FOLLOW WITH PATIENT. HER PLANS ARE TO RETURN TO HER HOME AT DISCHARGE
--- NOTE | 2016-08-07 18:09 | NUR ---
PT RESTING IN BED WITH EYES OPEN CALL LIGHT IN REACH NO PROBLEMS WILL MONITER
[2016-08-07 19:00] VITALS: BP 136/63
--- NOTE | 2016-08-07 19:50 | NUR ---
PT TALK TO FRIEND IN PHONE.
--- NOTE | 2016-08-07 22:34 | NUR ---
ASSISTED PT TO BATHROOM AND BACK TO BED.
--- NOTE | 2016-08-08 00:55 | NUR ---
IN BED, AWAKE. CURRENTLY RECEIVING R/T UPDRAFT.
--- NOTE | 2016-08-08 03:02 | NUR ---
PT REST IN BED, EYE CLOSE, BED LOW, CALL LIGHT WITHIN REACH.
--- NOTE | 2016-08-08 08:15 | NUR ---
PT RESTING IN BED WITH EYES OPEN CALL LIGHT IN REACH EATING BREAKFAST NO PROBLEMS WILL MONITER
--- NOTE | 2016-08-08 15:00 | NUR ---
RESTING QUIETLY.CL IN REACH.
--- NOTE | 2016-08-08 17:14 | NUR ---
PT RESTING IN BED WITH EYES OPEN CALL LIGHT IN REACH NO PROBLEMS WILL MONITER
--- NOTE | 2016-08-08 19:50 | NUR ---
SON TALK TO PT IN BED SIDE.
--- NOTE | 2016-08-08 21:10 | NUR ---
ASSISTED PT TO BATHROOM AND BACK TO BED.
[2016-08-08 23:30] VITALS: BP 113/69
--- NOTE | 2016-08-09 00:40 | NUR ---
RESTING IN BED, EYES CLOSED. NO DISTRESS NOTED.
--- NOTE | 2016-08-09 02:20 | NUR ---
ASSISTED PT TO BATHROOM AND BACK TO BED.
--- NOTE | 2016-08-09 03:50 | NUR ---
PT SIT IN EDGE OF BED, STATE SHE CAN NOT SLEEP, SHE WORRY ABOUT HER DAUGHTER HAS PNEUMONIA AND TREATMENT CONDITION IN HOSPITAL. AFTER TALK TO PT, SHE TRY TO GO BACK SLEEP.
--- NOTE | 2016-08-09 04:49 | NUR ---
PT REST QUIETLY IN BED, EYE CLOSE, BED LOW, CALL LIGHT WITHIN REACH.
[2016-08-09 08:00] VITALS: BP 136/79
--- NOTE | 2016-08-09 19:35 | NUR ---
PT. IN BED WITH HOB UP FOR COMFORT. ASSESSMENT COMPLETED. NO VOICED NEEDS AT THIS TIME. CALL LIGHT WITHIN REACH.
--- NOTE | 2016-08-09 23:06 | NUR ---
PT. IN BED WITH HOB UP FOR COMFORT AND COUGHING FREQUENTLY. AZUCENA GIVEN EARILER HASN'T HELPED PER PT. AND NOW SHE'S C/O THROAT PAIN. OFFERED TO GIVE HER A PAIN PILL IF THAT IS WHAT SHE WOULD LIKE AND PT. SAID YES. WILL GIVE HER A NORCO. CALL LIGHT WITHIN REACH.
[2016-08-09 23:20] VITALS: BP 130/76
--- NOTE | 2016-08-10 03:09 | NUR ---
PT. IN BED WITH HOB UP FOR COMFORT WITH O2 ON VIA N/C AT 2L/MIN. EYES CLOSED AND RESP. DEEP AND EVEN. CALL LIGHT WITHIN REACH.
--- NOTE | 2016-08-10 07:36 | NUR ---
RESTING QUIETLY IN BED CALL LIGHT IN REACH
[2016-08-10 09:10] VITALS: BP 119/56
--- NOTE | 2016-08-10 16:04 | NUR ---
PT IN BED EYES CLOSED RESTING
--- NOTE | 2016-08-10 17:42 | NUR ---
PT IN BED EYES CLOSED RESTING
[2016-08-10 19:04] VITALS: BP 130/71
--- NOTE | 2016-08-10 19:15 | NUR ---
PT. IN BED WITH HOB UP FOR COMFORT AND WATCHING TV. ASSESSMENT COMPLETED. SPEECH THERAPIST CAME IN DURING ASSESSMENT AND RE-ORIENTED PT. ON THE SKILLS PT. IS TO USE WHEN DRINKING/EATING TO PREVENT COUGHING SPELLS/ASPIRATION. PT. ACKNOWLEDGED UNDERSTANDING. NO VOICED NEEDS AT THIS TIME AND CALL LIGHT IS WITHIN REACH.
[2016-08-10 20:38] LABS: BASOPHILS 0.1 % (0-2); EOSINOPHILS 0.1 % (0-7); HEMATOCRIT 33.2 % (36.0-48.0); HEMOGLOBIN 9.7 g/dL (12-16); IMMATURE GRANULOCYTES 0.2 % (0-5); LYMPHOCYTES 3.3 % (15-50); MCH 23.1 pg (26.0-34.0); MCHC 29.2 g/dL (31.0-37.0); MEAN PLATELET VOLUME 9.4 fL (7.4-10.4); MONOCYTES 2.4 % (2-11); NEUTROPHILS 93.9 % (40-80); RDW 17.4 % (11.5-14.5); WBC 13.5 10x3/uL (4.8-10.8)
[2016-08-10 20:39] LABS: PLATELET COUNT 417 10x3/uL (130-400)
--- NOTE | 2016-08-10 23:02 | NUR ---
PT. IN BED WITH HOB UP FOR COMFORT. EYES CLOSED AND RESP. DEEP AND EVEN. O2 ON AT 2L/MIN VIA N/C AND NO S/S SOB OR COUGHING. CALL LIGHT WITHIN REACH.
--- NOTE | 2016-08-11 03:01 | NUR ---
PT. IN BED WITH HOB UP FOR COMFORT WITH EYES CLOSED AND RESP. DEEP AND EVEN. O2 ON VIA N/C @ 2L/MIN WITHOUT ANY S/S DISTRESS. CALL LIGHT WITHIN REACH.
--- NOTE | 2016-08-11 06:23 | NUR ---
PT. IN BED WITH HOB UP FOR COMFORT WITH EYES CLOSED AND RESP. EVEN. PT. AWAKENED EASILY FOR AM MEDS TODAY. HAD TO GIVE VERBAL CUES FOR SWALLOWING TECHNIQUE PER S.T. INSTRUCTIONS FOR MED TO GO DOWN SAFELY. CALL LIGHT WITHIN REACH.
--- NOTE | 2016-08-11 07:00 | NUR ---
RESTING QUIETLY IN BED. EYES CLOSED. CALL LIGHT IN REACH
[2016-08-11 08:00] VITALS: BP 105/57
--- NOTE | 2016-08-11 10:35 | NUR ---
SITTING UP IN BED ATE SOME BREAKFAST AND THEN APPEARS TO BE RESTING QUIETLY. WAS COOPERATIVE ABOUT TURNING HEAD TO THE RT WHEN SWALLOWING WHEN PROMPTED. DOES NOT DO THIS ON HER OWN. COUGHS LESS WHEN SHE TURNS HEAD TO RT. DENIES PAIN. CALL LIGHT IN REACH
[2016-08-11 13:31] VITALS: Ht 177.8 cm; Wt 86.2 kg
--- NOTE | 2016-08-11 19:48 | NUR ---
PT RECEIVED UP IN WHEELCHAIR AT BEDSIDE. NO SIGN/SYMPTOMS OF DISTRESS NOTED. NO NEEDS MADE KNOWN AT THIS TIME. CALL LIGHT IN REACH. WILL CONTINUE TO OBSERVE.
[2016-08-11 21:39] VITALS: BP 130/64
--- NOTE | 2016-08-11 23:00 | NUR ---
PT IN BED WITH EYES CLOSED AND CHEST RISING. RECEIVED MEDICATIONS PER MAR WITHOUT DIFFICULTY. VOMITING REPORTED 30 MINUTES AFTER MEDICATIONS GIVEN. NO FURTHER REPORTS OF NAUSEA NOTED AT THIS TIME. CALL LIGHT IN REACH WILL CONTINUE TO OBSERVE.
--- NOTE | 2016-08-12 02:13 | NUR ---
PT IN BED WITH EYES OPEN. STATES DIFFICULTY SLEEPING DUE TO RESTLESS LEGS. PRM MEDICATION GIVEN. NO OTHER CONCERNS NOTED. CALL LIGHT IN REACH. WILL CONTINUE TO OBSERVE.
--- NOTE | 2016-08-12 04:58 | NUR ---
PT IN BED WITH EYES CLOSED AND CHEST RISING. NO SIGN/SYMPTOMS OF DISTRESS NOTED. CALL LIGHT IN REACH. WILL CONTINUE TO OBSERVE.
[2016-08-12 06:10] LABS: BASOPHILS 0.4 % (0-2); EOSINOPHILS 4.4 % (0-7); HEMATOCRIT 28.9 % (36.0-48.0); HEMOGLOBIN 8.5 g/dL (12-16); IMMATURE GRANULOCYTES 0.2 % (0-5); LYMPHOCYTES 23.2 % (15-50); MCH 22.5 pg (26.0-34.0); MCHC 29.4 g/dL (31.0-37.0); MEAN PLATELET VOLUME 8.7 fL (7.4-10.4); MONOCYTES 10.5 % (2-11); NEUTROPHILS 61.3 % (40-80); PLATELET COUNT 369 10x3/uL (130-400); RBC 3.77 10x6/uL (4.00-5.40); RDW 16.9 % (11.5-14.5)
[2016-08-12 06:23] LABS: MCV 76.7 fL (80.0-100.0); WBC 5.2 10x3/uL (4.8-10.8)
[2016-08-12 06:34] LABS: ANION GAP 12.7 mmol/L (8-16); CALCIUM 8.3 mg/dL (8.5-10.1); CARBON DIOXIDE 25.8 mmol/L (21.0-32.0); POTASSIUM - SERUM 4.5 mmol/L (3.5-5.1)
--- NOTE | 2016-08-12 08:00 | NUR ---
SHIFT ASSMT COMPLETED.SITTING UP IN BED EATING,MORE SOB TODAY.COUGHING MORE WITH MEALS ALMOST WITH EACH BITE.DOES HAS A ZENGER DIVERTICULI.CL IN REACH.
[2016-08-12 08:18] VITALS: BP 117/69
--- NOTE | 2016-08-12 12:00 | NUR ---
SITTING UP ON SIDE OF BED EATING.
--- NOTE | 2016-08-12 16:00 | NUR ---
CONSULTED;WILL CONTINUE TO MONITOR.
--- NOTE | 2016-08-12 17:03 | NUR ---
CARE TEAM MEETING: SON ATTENDED MEETING. QUESTIONS ANSWERED BY THERAPY AND DR. MATIAS. TENATIVE DISCHARGE DATE IS 08/18/16. DR. GLOVER HAS BEEN CONSULTED FOR POSSIBLE SURGERY. WILL CONTINUE TO FOLLOW WITH PATIENT
--- NOTE | 2016-08-12 18:10 | NUR ---
DR.BREVING DENNEY.
--- NOTE | 2016-08-12 19:40 | NUR ---
PT IN BED WITH HOB UP FOR COMFORT. RESTING QUIETLY. ALERT AND ORIENTED X3. PAIN LEVEL 0/10. 02 @ 2L VIA N/C. MIN. TO MOD. ASSIST. BED IN LOWEST POSITION AND CALL LIGHT WIHTIN REACH.
[2016-08-12 20:35] VITALS: BP 144/72
--- NOTE | 2016-08-12 23:40 | NUR ---
PT IN BED WITH HOB UP FOR COMFORT. EYES CLOSED. CHEST RISING AND FALLING. BED IN LOWEST POSITION AND CALL LIGHT WITHIN REACH.
--- NOTE | 2016-08-13 03:40 | NUR ---
PT IN BED WITH HOB UP FOR COMFORT. EYES CLOSED. RESPIRATIONS EVEN AND UNLABORED. BED IN LOWEST POSITION AND CALL LIGHT WITHIN REACH.
--- NOTE | 2016-08-13 08:00 | NUR ---
SHIFT ASSMT COMPLETED.STATES FEELING BETTER TODAY.STAES CAN NOT EAT THE FOOD.WILL TRY ENSUE,SHAKES AND MAGIC CUP.
[2016-08-13 11:44] VITALS: BP 114/68
--- NOTE | 2016-08-13 12:00 | NUR ---
UP IN WC READY FOR LUNCH.
--- NOTE | 2016-08-13 12:07 | RHP ---
PATIENT: KARIN MULLINS MEDICAL RECORD: [id number] ACCOUNT: [id number] LOCATION:[facility]17 : 29 ADMISSION DATE: 08/04/16 REHABILITATION HISTORY AND PHYSICAL EXAMINATION POST ADMISSION PHYSICIAN EXAMINATION Post-admission Physical Examination and History and Physical DATE OF ADMISSION: 08/04/2016 ADMITTING DIAGNOSIS: Bilateral pneumonia. HISTORY OF PRESENT ILLNESS: The patient is an 85-year-old female patient, who is admitted with bilateral pneumonia. She was hospitalized at [facility] in May for fall with a pelvic fracture, went to rehab at [facility] and was discharged home. She was feeling well, did well. On the night of July, she went to bathroom and her legs gave way. She slid down to the floor, but did not fall or injure herself. She is nauseated and vomited, been coughing all evening. She denied fever. But because of her cough and shortness of breath, she came to Emergency Room by EMS. On admission, she was afebrile with temperature 98 degrees and a sat of 95% on 2 liters. Chest x-ray showed bilateral pneumonia, bilateral pleural effusions, and she was admitted with possible hospital-acquired pneumonia. Prior to admit, she was living alone with her family and she live close by. She continues to be doing well and be able to perform ADLs and ambulate with a rolling walker. Currently, she is mod to max assist for ADLs and mobility. She is experiencing dyspnea, tires easily. She is walking 80 feet with a rolling walker, gait belt, O2 at 3 liters and PT assistance. She makes frequent stop to catch her breath, definitely benefit from inpatient rehab to get back to her prior level of functioning. COMORBIDITIES: Include bilateral upper lobe pneumonia, anemia, UTI, incontinence. Positive urine culture, Zenker's diverticulum, recent pelvic fracture, tachycardia, gait abnormality, hyperlipidemia, osteoarthritis and adequate protein intake, glucose intolerance, anxiety and depression. PAST MEDICAL HISTORY: Significant for pelvic fracture, osteoarthritis, cataracts, depression, anxiety, hyperlipidemia, glucose intolerance, Zenker's diverticulum and hypertension. PAST SURGICAL HISTORY: Includes a total knee replacement, hysterectomy, recent pelvic fracture that was nonoperative. ALLERGIES: BOILED PEANUTS AND PENICILLIN. CURRENT MEDICATIONS: Include Levaquin 750 mg daily, Prozac 20 mg daily, aspirin chewable 81 mg daily, Mirapex 0.25 mg q.h.s., metoprolol 25 mg b.i.d., MiraLax 17 gram in 8 ounces of water daily, albuterol updrafts p.r.n., hydrocodone 10/325 as needed for pain, ferrous sulfate 325 mg b.i.d., cyclobenzaprine 10 mg q.6 hours p.r.n., and clonazepam 0.25 mg q.h.s. p.r.n. HABITS: No alcohol or tobacco use. FAMILY HISTORY: Noncontributory. SOCIAL HISTORY: The patient hopes to return back home with her family and get HISTORY AND PHYSICAL [id number] KARIN MULLINS back to her prior level of functioning. REVIEW OF SYSTEMS: GENERAL: Does complain of weakness. HEENT: Does complain of cold, cough, congestion. CARDIOVASCULAR: Denies any chest pain. LUNGS: Does complain of shortness of breath, especially with activity. PHYSICAL EXAMINATION: VITAL SIGNS: Stable, afebrile. GENERAL: Elderly female, in no acute distress, alert upon exam. HEENT: Normocephalic and atraumatic. Mucosa moist. NECK: Supple. No lymphadenopathy. LUNGS: Clear at this time. HEART: Regular rate and rhythm. ABDOMEN: Benign. EXTREMITIES: No clubbing, cyanosis or edema, but she does have some redness to the top of her foot. NEUROLOGIC: She seems intact. LABORATORY DATA: Her sodium is 140, potassium 3.6, BUN and creatinine of 13 and 0.8 and blood sugar is noted to be 110. Her liver functions are all normal. ASSESSMENT: This is an 85-year-old female patient admitted to rehab with a working diagnosis of bilateral pneumonia, complicated by recent pelvic fracture. The patient has potential to make improvement. We instituted the following multidisciplinary therapies including to, but not limited to physical, occupational, respiratory, speech, nutritional services, prosthetics and orthotics. Given her complex condition and risk for more complications, rehabilitation services cannot be provided at a lower level of care such as a fci facility. PLAN: 1. Admit to [facility] rehab for intensive inpatient therapy to include the following disciplines: A. Physical therapy to improve gait, all transfer skills and bed mobility to a modified independent level. B. Occupational therapy to improve activities of daily living to a modified independent level. C. Case management to assist with discharge planning and placement options. D. Nutrition to assist with nutritional needs. E. Rehabilitation nursing to assist in monitoring the patient's underlying medical conditions and to assist with any type of bowel or bladder management. 2. The patient's current medication and medical care will be continued. 3. The patient will be placed on standard fall precautions. 4. The patient's estimated length of stay is approximately 7-10 days. 5. We will go ahead and treat the cellulitis to her top of her foot with some Bactrim. 6. We will discuss this patient during care team staff meeting this week. TRANSINT:[id number] Voice Confirmation ID: [id number] DOCUMENT ID: [id number] ZACHARIAH notes whether there has been none or any medical/functional change since admission: HISTORY AND PHYSICAL [id number] KARIN MULLINS attests patient continues to be appropriate for IRF: - JENS MATIAS MD at 1207 CC: [id number] DICTATION DATE: 08/05/16 0842 CASH ACCOUNTANT: 08/05/16 1043 ADM IN [facility] [address] [place] [address]
--- NOTE | 2016-08-13 16:00 | NUR ---
SITTING UP IN CHAIR,DENIES NEEDS.
--- NOTE | 2016-08-13 20:00 | NUR ---
PT IN BED WITH HOB UP FOR COMFORT. RESTING QUIETLY. ALERT AND ORIENTED. PAIN LEVEL 0/10. 02 @ 2L VIA N/C. MIN. TO MOD. ASSIST. BED IN LOWEST POSITION AND CALL LIGHT WIHTIN REACH.
[2016-08-13 20:10] VITALS: BP 121/69
--- NOTE | 2016-08-14 | NUR ---
PT IN BED WITH HOB UP FOR COMFORT. EYES CLOSED. CHEST RISING AND FALLING. BED IN LOWEST POSITION AND CALL LIGHT WIHTIN REACH.
--- NOTE | 2016-08-14 00:50 | NUR ---
RESTING IN BED, EYES CLOSED. AUDIBLE RESPIRATIONS ARE UNLABORED. HOB UP 35 DEGREES.
--- NOTE | 2016-08-14 07:44 | NUR ---
RESTING QUIETLY IN BEDCALL LGITH IN REACH
[2016-08-14 11:18] VITALS: BP 128/60
--- NOTE | 2016-08-14 12:32 | NUR ---
SITTING UP IN BED EATING LUNCH. DENIES INCREASED SOB. CALL LIGHT IN REACH
[2016-08-14 19:08] VITALS: BP 143/85
--- NOTE | 2016-08-14 19:20 | NUR ---
UP IN THERAPY ROOM IN W/C WATCHING TV. DENIES NEEDS.
--- NOTE | 2016-08-15 | NUR ---
PT LYING IN BED WITH HOB UP FOR COMFORT. EYES CLOSED. RESPIRATIONS EVEN AND UNLABORED. BED IN LOWEST POSITION AND CALL LIGHT WITHIN REACH.
--- NOTE | 2016-08-15 01:00 | NUR ---
SOHAIL SEXTON FROM ICU OBTAINED 22 GAUGE IV ACCESS IN LEFT WRIST. STARTED 500 ML IV BOLUS TO RUN AT 150ML/HR.
--- NOTE | 2016-08-15 03:44 | NUR ---
PT IN BED WITH HOB UP FOR COMFORT. EYES CLOSED. CHEST RISING AND FALLING. BED IN LOWEST POSITION AND CALL LIGHT WITHIN EREACH.
--- NOTE | 2016-08-15 11:39 | NUR ---
SITTING UP IN W/C IN ROOM COLORING. DENIES NEEDS OXYGEN IN PLACE. CALL LIGHT IN REACH
--- NOTE | 2016-08-15 12:16 | NUR ---
RESTING IN BED WITH EYES CLOSED. RESP EFFORT NON LABORED. CALL LIGHT IN REACH
[2016-08-15 12:56] VITALS: BP 125/75
[2016-08-15 19:00] VITALS: BP 136/80
--- NOTE | 2016-08-15 22:25 | NUR ---
PT C/O COUGH FREQUENTLY,STATE IT MAKE HER HARD TO SLEEP, ADJUST PILLOW, RAISE HEAD UP TO 45 DEGREE, AND PRN COUGH MED GIVEN.
--- NOTE | 2016-08-15 23:47 | NUR ---
PT SIT UP IN BED AND WATCH TV.
--- NOTE | 2016-08-16 00:20 | NUR ---
PT REST QUIETLY IN BED,CALL LIGHT WITHIN REACH.
--- NOTE | 2016-08-16 02:20 | NUR ---
RESTING IN BED, EYES CLOSED. NO DISTRESS NOTED.
[2016-08-16 08:00] VITALS: BP 135/70
--- NOTE | 2016-08-16 08:33 | NUR ---
SITTING UP EATING BREAKFAST DENIES NEEDS CALL LIGHT IN REACH
--- NOTE | 2016-08-16 10:07 | NUR ---
PATIENT ALERT/ORIENT X4. USING CALL LIGHT FOR NEEDS. VOICES NO CONCERNS AT THIS TIME
--- NOTE | 2016-08-16 12:00 | NUR ---
PATIENT HELPED FROM BED INTO WHEELCHAIR. MOD ASST WITH TRANSFER.
--- NOTE | 2016-08-16 15:35 | NUR ---
PATIENT TURNED PROCESS EXCELLENCE MANAGER LIGHT. REQUESTED TO USE BATHROO. STAND BY ASST FROM WHEELCHAIR TO BATHROOM
--- NOTE | 2016-08-16 17:59 | NUR ---
PATIENT COUGHING UP CLEAR SPUTUM. SMALL AMOUNTS. PATIENT CONTINUE ON OYGEN AT 2L PER N/C
[2016-08-16 19:15] VITALS: BP 118/68
--- NOTE | 2016-08-16 19:15 | NUR ---
PT. IN BED WITH HOB UP FOR COMFORT WITH EYES CLOSED AND RESP. DEEP AND EVEN. O2 ON @ 2L/MIN VIA N/C WITHOUT ANY S/S SOB. ASSESSMENT COMPLETED. NO VOICED NEEDS AT THIS TIME AND CALL LIGHT IS WITHIN REACH.
--- NOTE | 2016-08-16 23:14 | NUR ---
PT. IN BED WITH HOB UP FOR COMFORT WITH EYES CLOSED, RESP. EVEN AND O2 VIA N/C AT 2L/MIN WITHOUT ANY S/S SOB. CALL LIGHT WITHIN REACH.
--- NOTE | 2016-08-17 03:10 | NUR ---
PT. IN BED WITH HOB UP FOR COMFORT WITH O2 ON AT 2L/MIN VIA N/C WITHOUT ANY S/S SOB. EYES CLOSED AND RESP. EVEN WITH CALL LIGHT WITHIN REACH.
--- NOTE | 2016-08-17 05:30 | NUR ---
HAD TO GIVE PT. VERBAL CUES TO TURN HER HEAD TO THE RIGHT BEFORE SHE SWALLOWED MEDS THIS MORNING. D/C'D LEFT F.A. PERIPHERAL I.V. WITH CATH TIP INTACT WITHOUT ANY PROBLEMS. PT. TOLERATED PROCEDURE WITHOUT ANY C/O. CALL LIGHT WITHIN REACH.
[2016-08-17 07:32] LABS: BASOPHILS 0.4 % (0-2); EOSINOPHILS 4.2 % (0-7); HEMATOCRIT 31.3 % (36.0-48.0); HEMOGLOBIN 9.1 g/dL (12-16); IMMATURE GRANULOCYTES 0.4 % (0-5); LYMPHOCYTES 27.1 % (15-50); MCH 22.6 pg (26.0-34.0); MCHC 29.1 g/dL (31.0-37.0); MCV 77.9 fL (80.0-100.0); MEAN PLATELET VOLUME 8.8 fL (7.4-10.4); NEUTROPHILS 58.9 % (40-80); PLATELET COUNT 364 10x3/uL (130-400); RBC 4.02 10x6/uL (4.00-5.40); RDW 16.8 % (11.5-14.5); WBC 5.5 10x3/uL (4.8-10.8)
[2016-08-17 07:51] LABS: CALCIUM 8.5 mg/dL (8.5-10.1); CARBON DIOXIDE 29.3 mmol/L (21.0-32.0); CREATININE - SERUM 0.8 mg/dL (0.6-1.3); POTASSIUM - SERUM 4.3 mmol/L (3.5-5.1)
--- NOTE | 2016-08-17 08:17 | NUR ---
SITTING UP EATING BREAKFAST DENIES NEEDS CALL LIGHT IN REACH
[2016-08-17 12:22] VITALS: BP 155/80
--- NOTE | 2016-08-17 13:02 | NUR ---
RESTING IN BED. EYES CLOSED. NO S/S DISTRESS. CALL LIGHT IN REACH
--- NOTE | 2016-08-17 18:09 | NUR ---
SITTING UP IN CHAIR IN ROOM EATING SUPPER. NEEDS CUES TO TURN HEAD TO RIGHT TO SWALLOW
[2016-08-17 18:59] VITALS: BP 118/62
--- NOTE | 2016-08-17 21:17 | NUR ---
REST IN BED, EYE OPEN, DENIES NEEDS.
--- NOTE | 2016-08-17 22:08 | NUR ---
ASSISTED PT TO BATHROOM AND BACK TO BED.
--- NOTE | 2016-08-17 23:25 | NUR ---
ASSISTED PATIENT WITH MIN ASSIST TO BATHROOM VIA W/C. PT MOD INDEPENDENCE WITH TOILETING, PT DENIES PAIN, NO S/S OF ACUTE DISTRESS.
--- NOTE | 2016-08-18 08:00 | NUR ---
PLAN FOR DC HOME TODAY.O2 DISCONTINUED,SHIFT ASSMT COMPLETED.
--- NOTE | 2016-08-18 10:07 | NUR ---
PATIENT DISCHARGING HOME WITH FAMILY. [facility] WILL RESUME CARE AT HOME. NO NEW DME NEEDED AT THIS TIME. DR. JJ 09/25/16 @ 10:30, DR. GLOVER 08/31/16 @ 10:30. PATIENT CHOICE FORM FOR HOME HEALTH AND [facility] FORM SIGNED, EXPLAINED AND FILED IN CHART. ORDERS HAVE BEEN FAXED WITH CONFORMATION RECIEVED
[2016-08-18 10:34] VITALS: BP 95/55
[2016-08-18] MEDS ORDERED: ZOFRAN4 MG PO (11:42)
--- NOTE | 2016-08-18 11:45 | NUR ---
REVIEWED MEDS AND HOME CARE INSTRUCTIONS,F/U APPTS.THERAPIES THROUGH HOME HEALTH TO PT AND SON WITH STATED UNDERSTANDING.DISCHARGED IN STABLE CONDITION.MEDS CALLED TO [facility] ON [address]
== END 2016-08-18 12:50 | disposition home health service (06) | DRG 194 ==
LOC: D.REHAB 16:02
PROVIDERS: ADMIT Emergency Medicine
DX: J18.9 Pneumonia, unspecified organism (principal); N39.0 Urinary tract infection, site not specified; J90 Pleural effusion, not elsewhere classified; D64.9 Anemia, unspecified; R32 Unspecified urinary incontinence; K22.5 Diverticulum of esophagus, acquired; S32.9XXD Fracture of unspecified parts of lumbosacral spine and pelvis, subsequent encounter for fracture with routine healing; R00.0 Tachycardia, unspecified; R26.9 Unspecified abnormalities of gait and mobility; E78.5 Hyperlipidemia, unspecified; M19.90 Unspecified osteoarthritis, unspecified site; F41.8 Other specified anxiety disorders; E74.39 Other disorders of intestinal carbohydrate absorption; I10 Essential (primary) hypertension

== ENCOUNTER → 2016-08-31 13:21 | Outpatient (CLI) | payer MEDICARE, OTHER ==
[2016-08-11 13:31] VITALS: BMI 27.2
[~2016-08-31 13:21] MED LIST changes: +ZOFRAN4 MG PO
== END | disposition home or self-care (01) ==
LOC: D.CT 13:21
DX: K22.5 Diverticulum of esophagus, acquired (principal)

== ENCOUNTER 2016-10-28 05:14 | Inpatient (IN) | payer MEDICARE, OTHER ==
[2016-10-27 10:05] LABS: BASOPHILS 1.1 % (0-2); EOSINOPHILS 1.3 % (0-7); HEMATOCRIT 38.3 % (36.0-48.0); HEMOGLOBIN 11.6 g/dL (12-16); IMMATURE GRANULOCYTES 0.2 % (0-5); MCHC 30.3 g/dL (31.0-37.0); MCV 75.8 fL (80.0-100.0); MEAN PLATELET VOLUME 8.9 fL (7.4-10.4); MONOCYTES 10.1 % (2-11); NEUTROPHILS 62.3 % (40-80); PLATELET COUNT 303 10x3/uL (130-400); RBC 5.05 10x6/uL (4.00-5.40); RDW 17.8 % (11.5-14.5); WBC 4.8 10x3/uL (4.8-10.8)
[2016-10-27 10:12] LABS: ANION GAP 11.3 mmol/L (8-16); CALCIUM 8.7 mg/dL (8.5-10.1); CARBON DIOXIDE 26.9 mmol/L (21.0-32.0); CREATININE - SERUM 0.9 mg/dL (0.6-1.3); POTASSIUM - SERUM 4.2 mmol/L (3.5-5.1)
[~2016-10-28] VITALS: Ht 177.8 cm; Wt 81.6 kg
[2016-10-28] VITALS (9 sets, daily range): BP systolic 84–122; BP diastolic 51–73; BMI 25.8
--- NOTE | ~2016-10-28 | OP ---
PATIENT NAME: KARIN MULLINS MEDICAL RECORD: [id number] :29 LOCATION:D.[id number] ADMISSION DATE: SURGEON: KELLEE GLOVER MD DATE OF OPERATION: 10/28/2016 PREOPERATIVE DIAGNOSES: 1. Recurrent aspiration pneumonia. 2. Zenker diverticulum. POSTOPERATIVE DIAGNOSES: 1. Recurrent aspiration pneumonia. 2. Zenker diverticulum. PROCEDURE: Left neck exploration with Zenker diverticulectomy. SURGEON: Kellee Glover MD. GASTROENTEROLOGY MANAGER: None. BLOOD LOSS: Minimal. ANESTHESIA: General. COMPLICATIONS: None. The risks, possible complications, and alternatives to the procedure were explained to the patient. She elects to proceed. It should be noted the patient had a left facial droop prior to the procedure. OPERATIVE COURSE: The patient was conveyed to the operating room electively on 10/28/2016. General anesthesia was induced by the anesthesia staff. The neck was sterilely prepped and draped. An esophageal temperature probe was inserted. An incision was accomplished along the anterior aspect of the left sternocleidomastoid. I dissected down through skin and subcutaneous tissue as well as the platysma. I dissected down to the omohyoid muscle, which was ligated doubly and divided between ligatures. I then dissected in the tracheoesophageal groove. The recurrent laryngeal nerve was retracted for protection. I dissected in the plane between the carotid sheath and the thyroid gland on the left. I dissected down to the esophagus. I identified the Zenker's diverticulum. I bluntly swept away surrounding connective tissue and adhesive tissue from the Zenker's diverticulum and I dissected it down to a thin stalk. I then stapled across the thin stalk with a TA-30 stapler and divided these Zenker's distal to this. I then sewed the esophagus over the staple line with multiple interrupted 3-0 Vicryl sutures. I divided the thyropharyngeus cephalad and the cricopharyngeus in a caudad direction. No time was there any apparent injury to a parathyroid gland or the recurrent laryngeal nerve. I irrigated with normal saline. A quarter inch Natasha drain was placed behind the esophagus. The esophageal temperature probe was removed. The platysma was approximated with interrupted 3-0 Vicryl sutures. The skin was approximated with a running intracuticular 4-0 Vicryl suture. The drain was sutured to skin with a 2-0 silk. OPERATIVE REPORT [id number] HARPREETKARIN A The patient was then extubated and conveyed to post-anesthesia care unit where she was in stable condition. She will be placed in an observation bed. TRANSINT:[id number] Voice Confirmation ID: [id number] DOCUMENT ID: [id number] KELLEE GLOVER MD CC: [id number] DICTATION DATE: 10/28/16 1250 REGIONAL TRAINING MANAGER: 10/28/16 211 [facility] [address] [place] [id number]
--- NOTE | ~2016-10-28 | CN ---
PATIENT NAME:KARIN DAMON MEDICAL RECORD: [id number] : 29 LOCATION:D.MS [id number] ADMIT DATE: 10/30/16 ACCOUNT: [id number] CONSULTING PHYSICIAN: ALEXANDRA BRUNER MD REFERRING PHYSICIAN: KELLEE GLOVER MD DATE OF CONSULTATION: 10/30/2016 CONSULT REQUESTING PHYSICIAN: Dr. Rashard Larry. REASON FOR CONSULTATION: Apneic episode. HISTORY OF PRESENT ILLNESS: Ms. Damon is an 86-year-old female who underwent a Zenker diverticulum repair. This morning it was noted the patient became apneic. According to the patient, she does have a history of snoring told by her , but he did not told her that she is quitting breathing as well. During the day, she is very sleepy and lethargic. Now, she is very confused and very difficult to get a detail history. REVIEW OF SYSTEMS: As in history of present illness. PAST MEDICAL HISTORY: 1. Hypertension. 2. History of recurrent pneumonia. 3. Zenker diverticulum. 4. Anxiety and depression. PAST SURGICAL HISTORY: 1. She has had a knee surgery. 2. Hysterectomy, now status post Zenker diverticulum repair. ALLERGIES: SHE IS ALLERGIC TO PENICILLIN. PRESENT MEDICATIONS: On [email or web address] was reviewed. PERSONAL AND SOCIAL HISTORY: The patient is a nonsmoker, nondrinker. FAMILY HISTORY: Noncontributory. PHYSICAL EXAMINATION: GENERAL: Now, the patient is lying comfortably in bed. She is not in acute distress. VITAL SIGNS: The blood pressure is 141/72, pulse is 79, respirations 22, temperature 98.2, SPO2 is 92% on room air. HEENT: Conjunctivae are pink. Sclerae nonicteric. NECK: Supple, no JVD. CHEST: Excursion is minimal on both sides. No wheeze, no rales. HEART: Rhythm regular, normal sound, no murmur. ABDOMEN: Soft, bowel sounds present. No hepatosplenomegaly. RECTAL: Deferred. EXTREMITIES: No cyanosis, no clubbing, no pedal edema. SKIN: Warm, normal turgor. CENTRAL NERVOUS SYSTEM: The patient is awake and alert. There are no obvious cranial nerve abnormalities. The gait was not tested. LABORATORY DATA: CBC: The WBC is 5.4, hemoglobin 9.1, hematocrit 30.6 and the CONSULT REPORT [id number] KARIN DAMON A platelet count is 252. Chemistry: Sodium 137, potassium is 3.7, BUN is 13, creatinine 0.7, glucose 101. IMPRESSION: 1. Obstructive sleep apnea. 2. Apneic episode secondary to obstructive sleep apnea. 3. Status post Zenker diverticular repair. 4. Hypertension. 5. Anxiety and depression. RECOMMENDATION: Check the TSH. Check the ammonia level. I would recommend a sleep study as outpatient when the patient is recovered from her surgery. Dr. Larry, thank you for involving me in the care of Ms. Damon. TRANSINT:[id number] Voice Confirmation ID: [id number] DOCUMENT ID: [id number] ALEXANDRA BRUNRE MD CC: RASHARD LARRY MD [id number] DICTATION DATE: 10/30/16 162 PRIVATE SECURITY GUARD: 10/31/[address] [facility] [address] [place] [address]
--- NOTE | ~2016-10-28 | HP ---
PATIENT: KARIN MULLINS MEDICAL RECORD: [id number] ACCOUNT: [id number] LOCATION:DSANDRA : 29 ADMISSION DATE: 10/28/16 HISTORY AND PHYSICAL EXAMINATION CHIEF COMPLAINT: Zenker's diverticulum. HISTORY OF PRESENT ILLNESS: The patient is to undergo Zenker's diverticulectomy versus a diverticulopexy. I have personally reviewed the CT images with Dr. Callahan. There was some question as to whether this was a right-sided diverticulum or a left-sided. A CT scan confirmed this is a left-sided diverticulum. I discussed with the patient the pathophysiology of Zenker's diverticula as well as how they can be repaired. We discussed the risks, possible complications, and alternatives to the procedure. She elects to proceed. The discussion specifically included, but was not limited to, bleeding requiring an emergency reoperation, infection, esophageal leakage as well as a recurrent diverticulum. The patient has had a history of aspiration pneumonias. It was felt this is due to this very large diverticulum. ALLERGIES: TO BOILED PEANUTS WE[place] PENICILLINS. HOME MEDICATIONS: Xanax, metoprolol, allopurinol, fluoxetine. SOCIAL HISTORY: Nonsmoker. PAST MEDICAL AND SURGICAL HISTORY: Gastroesophageal reflux, gout, hysterectomy, total knee arthroplasty, hypertension and possible history of CVA. REVIEW OF SYSTEMS: Negative for diabetes or thyroid problems. Negative for renal disease or hepatitis. PHYSICAL EXAMINATION: GENERAL: The patient does not appear acutely ill. She does not appear chronically ill. VITAL SIGNS: Reviewed. The entire physical examination was performed in the presence of a female nurse. HEAD: External ears appear normal. EYES: Extraocular movements are intact. NECK: Trachea is midline. CHEST: No intercostal retractions. PULMONARY: Nonlabored, no stridor. ABDOMEN: Nontender. FACE: She has a drooping of the left side of the face, which spares the forehead, which indicates to me that she may have had a stroke in the past. IMPRESSION: History of aspiration pneumonia in a patient with large Zenker's diverticulum. PLAN: Will be neck exploration. Diverticulectomy. TRANSINT:[id number] Voice Confirmation ID: [id number] DOCUMENT ID: [id number] HISTORY AND PHYSICAL [id number] KARIN MULLINS ROBERT MD CC: DE JJ MD [id number] DICTATION DATE: 10/28/16 1047 MEDICAL REIMBURSEMENT MANAGER: 10/28/16 [address] [id number] [place] [id number]
[~2016-10-28 05:14] MED LIST changes: +HYDROCHLOROTH12.5 M1 PO; +MILK OF MAGNESI30 ML PO; -PROZAC20 MG PO; +PROZAC40 MG PO; +VITAMIN D250000 UNIT PO
[2016-10-28] MEDS ORDERED: FERROUS SULFAT325 MG PO (08:40)
--- NOTE | 2016-10-28 09:04 | NUR ---
TOOK METOPROLOL 10/25/162099. DID NOT TAKE B/P LOW.
--- NOTE | 2016-10-28 09:14 | NUR ---
REPORTED THIS ABOVE INFO TO GUIDO RICHARD.
--- NOTE | 2016-10-28 14:10 | NUR ---
RECIEVED PT VIA HOSPITAL BED TO ROOM AT THIS TIME FROM RECOVERY. REPORT RECIVED, PT PLACED ON A CONTINUOUS PULSE OX ON PT TO CONTINUE TO MONITOR O2 SATURATION. ASSESSMENT DONE PER FLOWSHEET. BED IN LOW POSITION AND CALL LIGHT WITHIN REACH. WILL CONTINUE TO MONITOR.
--- NOTE | 2016-10-28 14:16 | NUR ---
NOTIFIED ANESTHESIA OF O2 SAT ON 10L OXYMIZER. DR BAUER AT BS TO MATI PT. ORDERS TO SEND TO FLOOR ON CURRENT O2 THERAPY WITH CONTINUOUS PULSE OX MONITORING TO KEEP SPO2 90%.
--- NOTE | 2016-10-28 15:40 | NUR ---
500CC BOLUS OF NS GIVEN AT THIS TIME PER VERBAL ORDER FROM DR. JJ. WILL CONTINUE TO MONITOR.
[2016-10-29] VITALS: BP 125/70
--- NOTE | 2016-10-29 03:35 | NUR ---
EYES CLOSED RESPIRATIONS WITH EASE AND UNLABORED.SR UP XC2 CALL LIGHT WITHIN REACH.
[2016-10-29 04:00] VITALS: BP 128/88
--- NOTE | 2016-10-29 07:15 | NUR ---
PATIENT RECEIVED ALERT IN LOW MCGOVERN POSITION. NO SIGNS OF DISTRESS NOTED. SIDE RAILS UP X2. BED IN LOW POSITION. CALL LIGHT IN REACH.
--- NOTE | 2016-10-29 08:10 | NUR ---
PATIENT OFF FLOOR TO RADIOLOGY VIA BED.
[2016-10-29 08:26] VITALS: BP 125/59
--- NOTE | 2016-10-29 08:40 | NUR ---
PATIENT BACK TO ROOM FROM RADIOLOGY. CALL LIGHT IN REACH.
--- NOTE | 2016-10-29 11:00 | NUR ---
ALERT IN BED VISITING WITH SON. NO SIGNS OF DISTRESS NOTED. BED IN LOW POSITION. CALL LIGHT IN REACH. SIDE RAILS UP X2
[2016-10-29 12:57] VITALS: BP 140/70
[2016-10-29 14:05] VITALS: Ht 177.8 cm; Wt 81.6 kg
--- NOTE | 2016-10-29 14:54 | NUR ---
PATIENT ALERT IN BED WATCHING TV. NO SIGNS OF DISTRESS NOTED. SCHEDULED MEDICATION ADMINISTERED. SIDE RAILS UP X3. BED IN LOW POSITION. CALL LIGHT IN REACH. BED ALARM ON.
[2016-10-29 16:11] VITALS: BP 120/64
--- NOTE | 2016-10-29 16:34 | NUR ---
PATIENT ALERT IN BED AND CONFUSED. ORIENTED TO SELF. TRYING TO CLIMB OUT OF BED. REORIENTED PATIENT TO PLACE, TIME AND SITUATION. XANAX PER PRN ORDER. SIDE RAILS UP X2. BED IN LOW POSITION. CALL LIGHT IN REACH.
--- NOTE | 2016-10-29 17:30 | NUR ---
PATIENT IN MID MCGOVERN POSITION RESTING QUIETLY WITH EYES CLOSED. RESPIRATIONS EVEN AND UNLABORED. SIDE RAILS UP X2. BED IN LOW POSITION. CALL LIGHT IN REACH. BED ALARM ON.
--- NOTE | 2016-10-29 19:31 | NUR ---
RESTING QUIETLY WITH EYES CLOSED. NO SIGNS OF DISTRESS NOTED. ON 10L OF OXYGEN VIA OXYMIZER. BED IN LOWEST POSITION, CALL LIGHT IN REACH. BED RIALS UP X'S 2. BED ALARM ON. DOOR OPEN.
[2016-10-29 20:00] VITALS: BP 120/65
--- NOTE | 2016-10-29 22:00 | NUR ---
PATIENT REFUSED SCDS
--- NOTE | 2016-10-29 23:37 | NUR ---
REMOVED BORDERED GAUZE DRESSING, CLEANED WITH STERILE WOUND GENERAL EDUCATION INSTRUCTOR SPRAY AND STERILE 4X4 GAUZE. CUT THE BLACK SUTURE. REMOVED THE CLIFFORD DRAIN INTACT. HELD PRESSURE USING STERILE 4X4 GAUZE. APPLIED A NEW BORDERED GAUZE DRESSING. PATIENT IS CONFUSED. STATED SHE IS AT HOME AND WANTS TO KNOW WHERE HER IS. REORIENTED PATIENT MANY TIMES. BED ALARM IS ON.
[2016-10-30] VITALS: BP 126/66
--- NOTE | 2016-10-30 01:30 | NUR ---
PATIENT HAD LEFT LEG OUT OF THE BED AND OXYGEN OFF. I PUT THE OXYGEN BACK ON. EXPLAINED TO PATIENT THAT THE OXYGEN HAS TO STAY ON AND TOLD HER WHY. SHE STATED "I HAVE TO GET IN THERE TO EAT BREAKFAST." I STATED "IT IS 1:30 IN THE MORNING. ARE YOU HUNGERY?" SHE STATED "NO." I ASSISTED PATIENT PUTTING HER LEGS BACK IN THE BED. COVERED HER UP. BED ALARM IS ON. DOOR OPEN.
--- NOTE | 2016-10-30 01:41 | NUR ---
RESTING QUIETLY WITH EYES CLOSED. OXYGEN VIA OXYMIZER AT 7L/MIN. BED IN LOWEST POSITION, CALL LIGHT IN REACH. BED ALARM ON.
--- NOTE | 2016-10-30 03:36 | NUR ---
RESTING QUIETLY WITH EYES CLOSED
[2016-10-30 04:00] VITALS: BP 139/77
--- NOTE | 2016-10-30 04:08 | NUR ---
PATIENT HAD INCONTINENT VOID. WITH ASSIST FROM CO CHAIRMAN CHANGED PATIENT.
[2016-10-30 06:41] LABS: BASOPHILS 0.4 % (0-2); EOSINOPHILS 1.5 % (0-7); HEMATOCRIT 30.6 % (36.0-48.0); HEMOGLOBIN 9.1 g/dL (12-16); IMMATURE GRANULOCYTES 0.2 % (0-5); LYMPHOCYTES 16.2 % (15-50); MCH 22.9 pg (26.0-34.0); MCHC 29.7 g/dL (31.0-37.0); MCV 76.9 fL (80.0-100.0); MEAN PLATELET VOLUME 9.4 fL (7.4-10.4); MONOCYTES 7.5 % (2-11); NEUTROPHILS 74.2 % (40-80); PLATELET COUNT 252 10x3/uL (130-400); RBC 3.98 10x6/uL (4.00-5.40); RDW 18.2 % (11.5-14.5); WBC 5.4 10x3/uL (4.8-10.8)
[2016-10-30 07:09] LABS: CALC OSMOLALITY 273 mosm/kg (275-300); CARBON DIOXIDE 25.1 mmol/L (21.0-32.0); CHLORIDE - SERUM 104 mmol/L (98-107); CREATININE - SERUM 0.7 mg/dL (0.6-1.3); GLUCOSE 101 mg/dL (74-106); POTASSIUM - SERUM 3.7 mmol/L (3.5-5.1); SODIUM 137 mmol/L (136-145); UREA NITROGEN 13 mg/dL (7-18); eGFR NON AFRICAN AMERICAN 84 mL/min (90-120)
--- NOTE | 2016-10-30 07:22 | NUR ---
RESTING WITHOUT SIGNS OF DISTRESS.DOOR OPEN TO MONITOR
--- NOTE | 2016-10-30 08:30 | NUR ---
HERO spoke with Dr Larry about Patient, he stated that the patient was on RA and O2 sat was 92-93% and doing well. HERO will continue to follow and assist with discharge planning
[2016-10-30 08:54] VITALS: BP 140/73
[2016-10-30 13:03] VITALS: BP 141/72
[2016-10-30 20:00] VITALS: BP 116/97
[2016-10-31] VITALS: BP 146/77
[2016-10-31 04:00] VITALS: BP 129/73
--- NOTE | 2016-10-31 07:30 | NUR ---
ASSESSMENT COMPLETE. SITTING UP IN CHAIR. IV TO L WRIST PATENT. NS INFUSING AT 75 CC/HR VIA PUMP. DUC MAT IN USE.INCISION TO L NECK WITH STERI STRIPS INTACT. DISORIENTED TO PLACE. BELIEVES SHE IS IN " A SENIOR LIVING".
[2016-10-31 08:34] VITALS: BP 160/94
--- NOTE | 2016-10-31 11:05 | NUR ---
ASSISTED BACK TO BED.
--- NOTE | 2016-10-31 11:56 | NUR ---
LATE ENTRY 100 CM RECEIVED MD ORDER FOR DISCHARGE TO [facility] PER SON'S INSTRUCTION. TC TO [place] [id number]. SPOKE WITH GILBERTO. PATIENT HAD BEEN DISCHARGED TO HOME ON September. THEY WERE NOT EXPECTING HER THIS WEEKEND FOR ADMISSION. SHE WILL BE EVALUATED FOR ADMISSION WHEN APPROPRIATE STAFF IS AVAILABLE ON WEDNESDAY. CM TO FOLLOW. ADVISED PRIMARY NURSE. WILL F/U WITH FAMILY.
[2016-10-31 13:03] VITALS: BP 133/74
--- NOTE | 2016-10-31 13:58 | NUR ---
7620 HERO RECEIVED A TELEPHONE CALL FROM KE, THE WARP DRAWER FROM [facility]. THEY WILL ADMIT THE PATIENT TODAY. SHE WILL BE INTO THE FACILITY TO COMPLETE THE ADMISSION. SHE WILL CALL THE SON. HERO FAXED CLINICAL AND DISCHARGE ORDERS FOR REVIEW TO [phone]. PRIMARY NURSE TO CALL REPORT TO [phone]. WILL ADVISE PRIMARY NURSE, NGUYỄN. ADVISED BILL CUTTER. TC TO CLINICAL COORDINATOR TO ADVISE OF D/C TODAY.
--- NOTE | 2016-10-31 14:56 | NUR ---
REPORT CALLED TO MALINA AT [facility]. IV REMOVED.CATHETER TIP INTACT. WILL TRANSFER BACK BY AMBULANCE.
[2016-10-31] MEDS ORDERED: HYDROCODON-ACE1 EAC7 PO (15:13)
--- NOTE | 2016-10-31 16:00 | NUR ---
DC'D TO [facility] VIA AMBULANCE.
[2016-10-31 16:31] VITALS: BP 109/58
== END 2016-10-31 16:00 | DRG 156 ==
LOC: D.MS 05:14 → D.OPS 05:14 → D.PAN 08:45 → D.OPS 10:00 → D.PAN 10:55 → D.MS 13:51 → D.SDCHOLD 17:38 → D.MS 17:39 → D.OPS 10-30 13:08 → D.MS 10-30 13:09
PROVIDERS: Anesthesiology; Family Medicine; ADMIT Surgery
DX: G47.33 Obstructive sleep apnea (adult) (pediatric) (principal); I10 Essential (primary) hypertension; F41.8 Other specified anxiety disorders

== ENCOUNTER 2017-04-28 15:30 | Emergency (ER) | payer MEDICARE, OTHER ==
[2016-10-29 14:05] VITALS: BMI 25.8
[~2017-04-28 15:30] MED LIST changes: +HYDROCODON-ACE1 EAC7 PO
== END 2017-04-28 20:42 | disposition home or self-care (01) ==
LOC: D.ER 15:30
DX: R04.0 Epistaxis (principal); S02.2XXA Fracture of nasal bones, initial encounter for closed fracture; W05.0XXA Fall from non-moving wheelchair, initial encounter; Y93.89 Activity, other specified; Y92.129 Unspecified place in nursing home as the place of occurrence of the external cause; I10 Essential (primary) hypertension